=== PATIENT | female | born 2000 | race Caucasian/White ===

== ENCOUNTER 2021-03-22 09:38 | Emergency (ER) | payer BC, SELFPAY ==
--- NOTE | ~2021-03-22 | XR_ITS ---
EXAMINATION: XR chest 1V portable DATE: 03/22/2021 10:16 INDICATION: Cough. Shortness of breath. TECHNIQUE: A single frontal view of the chest was obtained. COMPARISON: None. FINDINGS: The chest demonstrates clear lungs without pneumonia, pleural effusion, or pneumothorax. Th e heart size is normal. IMPRESSION: 1. No acute cardiopulmonary disease. Reviewed, dictated and finalized at location A.
[2021-03-22 09:41] VITALS: BP 144/95; PULSE 96; RESP 18; TEMP 36.9; O2SAT 99
--- NOTE | 2021-03-22 09:52 | ECG_ITS ---
Measurements Intervals [place] Rate: 83 P: 41 DE: 122 QRS: 29 QRSD: 98 T: 16 QT: 342 QTc: 402 Interpretive Statements SINUS RHYTHM WITH SINUS ARRHYTHMIA BASELINE ARTIFACT- I, II, III, AVR, AVL, AVF, V1-V6 NORMAL ECG Electronically Signed On 03-22-2021 9:59:19 CDT by Adonay Bowles D.O.
[2021-03-22 09:54] VITALS: PULSE 94; O2SAT 99
[2021-03-22 10:13] LABS: Basophils Percent Auto 0.4 % (0.2-1.2); Eosinophils Percent Auto 0.4 % (0-4.4); Hematocrit 38.6 % (37.0-47.0); Immature Granulocyte Absolute 0.02 K/mm3 (0.00-0.031); Immature Granulocyte Percent A 0.4 % (0-0.5); Lymphocytes Absolute Auto 2.56 K/mm3 (0.9-3.2); Lymphocytes Percent Auto 48.8 % (18.3-44.2); Mean Corpuscular HGB Conc 33.7 g/dl (32-36); Mean Corpuscular Hemoglobin 29.3 pg (26-34); Mean Corpuscular Volume 86.9 fl (80-100); Mean Platelet Volume 9.1 fl (7.4-10.4); Monocytes Absolute Auto 0.5 K/mm3 (0.1-0.6); Monocytes Percent Auto 8.6 % (2.6-8.5); Neutrophils Absolute Auto 2.2 K/mm3 (1.3-6.7); Neutrophils Percent Auto 41.4 % (45.5-73.1); Platelet Count Result 278 k/mm3 (150-375); Red Blood Count 4.44 M/mm3 (4.2-5.4); White Blood Count 5.3 K/mm3 (4.5-10.0)
[2021-03-22 10:23] LABS: Anion Gap 9 mmol/L (8-16); Blood Urea Nitrogen 10 mg/dL (7-17); Calcium 9.5 mg/dL (8.4-10.2); Carbon Dioxide 23 mmol/L (22-30); Chloride 110 mmol/L (98-107); D Dimer 0.41 ug/mL (<0.48); Estimated CRCL calculation 127 ml/min; Estimated Glomerular Filt Rate > 60; Glucose 104 mg/dL (65-105); Potassium 3.7 mmol/L (3.4-5.0); Sodium 142 mmol/L (137-145)
[2021-03-22 10:46] VITALS: PULSE 79; RESP 19; O2SAT 99
--- NOTE | 2021-03-22 10:47 | ED.URI ---
HPI - URI/Sore Throat General Chief Complaint: Shortness of Breath/Dyspnea Stated Complaint: Difficulty Breathing Time Seen by Provider: 03/22/21 09:52 Source: patient Mode of arrival: ambulatory Limitations: no limitations History of Present Illness HPI Narrative: Patient is a 20 year old female who presents with fever, body aches, cough and shortness of breath x 1 week. Patient reports fever and bodyaches have resolved and shortness of breath and cough appeared x 2 days, reports increasing shortness of breath today. Patient has not been vaccinated for Covid as of this time. Patient denies significant medical history, reports she does vape. MD elicited complaint: cough and other (shortness of breath) Related Data Allergies Allergy/AdvReac Type Severity Reaction Status Date / Time amoxicillin [From Amoxil] Allergy Unknown Verified 03/22/21 09:55 Review of Systems Review of Systems: Narrative: CONSTITUTIONAL: Denies fever, chills, or sweats. EYES: Denies visual changes, redness, or discharge. ENT: Denies rhinorrhea, congestion, sore throat, or otalgia. CARDIOVASCULAR: Denies chest pain, palpitations, or edema. RESPIRATORY: Reports cough and dyspnea. GASTROINTESTINAL: Denies abdominal pain, nausea, vomiting, or diarrhea. GENITOURINARY: Denies dysuria or hematuria. SKIN: Denies rash or itching. MUSCULOSKELETAL: Denies back pain, joint pain, or myalgia. NEUROLOGIC: Denies headache, numbness, dizziness, or weakness. PSYCHIATRIC: Denies anxiety or depression. PMFSH Social History Social History (Updated 03/22/21 @ 10:51 by MALDONADO Nicholson) Smoking status: Current every day smoker Tobacco type: e-cigarettes/vaping Alcohol intake: never Substance use: never Living arrangements: with family Occupation/Education: occupation Comments At the time of signature, I have reviewed and agree with nursing past medical, surgical, social, and family history unless otherwise noted. Please see nursing chart for further information. There is no relevant family history pertinent to the presenting complaint. Exam Narrative: Exam Narrative: GENERAL: Well-appearing, well-nourished, and in no acute distress. HEAD: Normocephalic, atraumatic. EYES: EOMI. No redness or drainage. Conjunctiva are normal. ENT: Mucous membranes pink and moist. CHEST: No respiratory distress. Clear to auscultation. HEART: Regular rate and rhythm. No murmur appreciated. EXTREMITIES: Normal range of motion. SKIN: Warm, dry, no rash. NEURO: No focal deficits. Alert and oriented x3. Gait steady. PSYCH: Normal affect. No signs of depression or anxiety. Course Vital Signs Vital signs: Vital Signs Temperature 36.9 C 03/22/21 09:41 Pulse Rate 96 03/22/21 09:41 Respiratory Rate 18 03/22/21 09:41 Blood Pressure 144/95 H 03/22/21 09:41 Pulse Oximetry 99 03/22/21 09:41 Temperature 36.9 C 03/22/21 09:41 Pulse Rate 79 03/22/21 10:46 Respiratory Rate 19 03/22/21 10:46 Blood Pressure 144/95 H 03/22/21 09:41 Pulse Oximetry 99 03/22/21 10:46 Reviewed-patient is informed that they may have pre-hypertension or hypertension based on a blood pressure reading. I recommend the patient call the primary care provider listed on their discharge instructions or a physician of their choice this week to arrange follow-up for further evaluation of possible pre-hypertension or hypertension. MDM - URI/Sore Throat MDM Narrative Medical decision making narrative: Patient is afebrile and not nontoxic in appearance. Patient's labs are nonremarkable. Discussed the possibility of Covid with patient and mother. Patient to be tested for Covid at this time. Discussed quarantine until results are received. Discussed red flags with patient and mother about when to return to the ED. Patient and mother agree with plan of care. Patient is stable for discharge to home with outpatient follow up as needed. Differential Diagnosis Differential diagnosis: [place]
[2021-03-22 11:22] VITALS: BP 133/75; PULSE 88; RESP 18; O2SAT 99
[2021-03-23 18:54] LABS: SARS-CoV-2 RNA PCR Positive
== END 2021-03-22 11:23 | disposition home or self-care (01) ==
PROVIDERS: Emergency Medicine; Emergency Provider Nurse Practitioner
DX: U07.1 COVID-19 (principal); J06.9 Acute upper respiratory infection, unspecified; F17.290 Nicotine dependence, other tobacco product, uncomplicated; R03.0 Elevated blood-pressure reading, without diagnosis of hypertension
CPT/HCPCS: 36415; 71045; 80048; 85025; 85380; 93005; 99284; C9803; U0003; U0005

== ENCOUNTER 2022-04-19 09:54 | Outpatient (CLI) | payer BC, SELFPAY ==
[2022-04-19 10:38] LABS: Basophils Absolute Auto 0.1 K/mm3 (0.0-0.1); Basophils Percent Auto 0.5 % (0.2-1.2); Eosinophils Absolute Auto 0.2 K/mm3 (0-0.3); Eosinophils Percent Auto 1.6 % (0-4.4); Hematocrit 38.7 % (37.0-47.0); Hemoglobin 12.4 g/dL (12.0-15.0); Immature Granulocyte Absolute 0.08 K/mm3 (0.00-0.031); Immature Granulocyte Percent A 0.8 % (0-0.5); Lymphocytes Absolute Auto 2.57 K/mm3 (0.9-3.2); Lymphocytes Percent Auto 26.7 % (18.3-44.2); Mean Corpuscular Hemoglobin 29.4 pg (26-34); Mean Corpuscular Volume 91.7 fl (80-100); Mean Platelet Volume 9.1 fl (7.4-10.4); Monocytes Absolute Auto 0.9 K/mm3 (0.1-0.6); Monocytes Percent Auto 9.2 % (2.6-8.5); Neutrophils Absolute Auto 5.9 K/mm3 (1.3-6.7); Neutrophils Percent Auto 61.2 % (45.5-73.1); Platelet Count Result 392 k/mm3 (150-375); Red Blood Count 4.22 M/mm3 (4.2-5.4); White Blood Count 9.6 K/mm3 (4.5-10.0)
[2022-04-19 10:55] LABS: Cholesterol 197 mg/dL (0-200); HDL Direct 41 mg/dL; Hemoglobin A1C 5.2 % (<5.7); Triglycerides 88 mg/dL (<150)
[2022-04-19 11:08] LABS: LDL Cholesterol Direct 116 mg/dL
[2022-04-19 11:14] LABS: Beta HCG Quantitative < 2.39 mIU/ML
[2022-04-22 11:24] LABS: FSH 7.7 mIU/mL (***); Progesterone 0.2 ng/mL (***); Prolactin 8.9 ng/mL (***)
[2022-04-22 13:32] LABS: DHEA-Sulfate 122 mcg/dL (18-391)
[2022-04-28 03:56] LABS: Estradiol, Ultrasensitive 51 pg/mL
== END 2022-04-19 09:55 | disposition home or self-care (01) ==
LOC: ANHLAB 09:56
PROVIDERS: Visit Provider Obstetrics & Gynecology
DX: N92.6 Irregular menstruation, unspecified (principal); E66.9 Obesity, unspecified
CPT/HCPCS: 36415; 80061; 82627; 82670; 83001; 83036; 83498; 84144; 84146; 84402; 84403; 84702; 85025

== ENCOUNTER 2023-08-29 09:18 | Outpatient (CLI) | payer BC, SELFPAY ==
[2023-08-29 10:50] LABS: Basophils Percent Auto 0.4 % (0.2-1.2); Eosinophils Percent Auto 0.4 % (0-4.4); Hematocrit 39.1 % (37.0-47.0); Hemoglobin 12.9 g/dL (12.0-15.0); Immature Granulocyte Absolute 0.05 K/mm3 (0.00-0.031); Immature Granulocyte Percent A 0.5 % (0-0.5); Lymphocytes Absolute Auto 2.46 K/mm3 (0.9-3.2); Lymphocytes Percent Auto 25.2 % (18.3-44.2); Mean Corpuscular Hemoglobin 29.9 pg (26-34); Mean Corpuscular Volume 90.5 fl (80-100); Mean Platelet Volume 8.9 fl (7.4-10.4); Monocytes Absolute Auto 0.6 K/mm3 (0.1-0.6); Monocytes Percent Auto 6.2 % (2.6-8.5); Neutrophils Absolute Auto 6.6 K/mm3 (1.3-6.7); Neutrophils Percent Auto 67.3 % (45.5-73.1); Platelet Count Result 350 k/mm3 (150-375); Red Blood Count 4.32 M/mm3 (4.2-5.4); Red Cell Distribution Width 12.8 % (11.5-14.5); White Blood Count 9.8 K/mm3 (4.5-10.0)
[2023-08-29 11:01] LABS: Glucose 1 Hour PP 50gm Dose 106 mg/dL
[2023-08-29 11:42] LABS: HIV 1/2 Ab P24 Ag Result Negative (Negative)
[2023-08-29 12:22] LABS: Rubella IgG Antibody > 110.0 IU/ML
[2023-08-29 12:23] LABS: Hepatitis B Surface Antigen Negative (Negative)
[2023-08-29 14:41] LABS: Rapid Plasma Reagin Non-Reactive (NonReactive)
[2023-08-31 10:17] LABS: CMV IgG Antibody <0.60 U/mL (<0.60)
== END 2023-08-29 09:19 | disposition home or self-care (01) ==
LOC: ANHLAB 09:19
PROVIDERS: Visit Provider Student in an Organized Health Care Education/Training Program
DX: N91.2 Amenorrhea, unspecified (principal)
CPT/HCPCS: 36415; 82947; 84702; 85025; 86592; 86644; 86703; 86747; 86762; 86787; 86850; 86900; 86901; 87086; 87088; 87340; G0432

== ENCOUNTER 2023-11-21 09:42 | Outpatient (CLI) | payer OTHER, SELFPAY ==
--- NOTE | ~2023-11-21 | US_ITS ---
EXAMINATION: US OB /maternal detail DATE: 11/21/2023 10:56 INDICATION: Encounter for supervision of normal . TECHNIQUE: Real-time ultrasound of the pelvis was performed. COMPARISON: Ultrasound 09/05/2023 FINDINGS: There is a single living fetus in breech presentation. The placenta is anterior and fundal. he art rate is 131 beats per minute (bpm). The amniotic fluid volume is subjectively normal. The cervica l length is 4.8 cm on transabdominal images, which is normal. The following biometric data were obtained: Biparietal diameter (BPD): 4.6 cm; head circumference (HC): 17.9 cm; abdominal circumference (AC): 16 .9 cm; femur length (FL): 3.2 cm. These measurements are discordant with low HC/AC ratio. Estimated weight is 389 g +/- 58 g, which correlates with the 82nd percentile when 04/07/24 is u sed as estimated date of delivery. As single measurements, these parameters are each equal to the following estimated gestational ages: BPD: 20 weeks 0 days. HC: 20 weeks 2 days. AC: 21 weeks 6 days. FL: 20 weeks 0 days. estimated gestational age based solely on measurements from this exam is 20 weeks 4 days +/- 1 weeks 3 days. The cerebral ventricles and visualized portions of the spine are normal. The posterior head is not well evaluated. The heart is now well evaluated The diaphragm, stomach, kidneys, and bladder are normal. There are two umbilical arteries to yield a 3-vessel cord. The cord insertion is normal. IMPRESSION: 1. Single living fetus in breech presentation. 2. Estimated weight is 389 g +/- 58 g, which correlates with the 82nd percentile when 04/07/24 is used as estimated date of delivery. 3. head and heart not well evaluated. Otherwise normal anatomic survey. 4. Discordant biometrics with low HC/AC ratio. Reviewed, dictated and finalized at location E. [place] IMPRESSION: 1. Single living fetus in breech presentation. 2. Estimated weight is 389 g +/- 58 g, which correlates with the 82nd rcentile when 04/07/24 is used as estimated date of delivery. 3. head and heart not well evaluated. Otherwise normal anatomic socorro vey. 4. Discordant biometrics with low HC/AC ratio.
== END 2023-11-21 09:43 | disposition home or self-care (01) ==
LOC: ANHIMG 09:44
PROVIDERS: Visit Provider Obstetrics & Gynecology
DX: Z34.90 Encounter for supervision of normal pregnancy, unspecified, unspecified trimester (principal)
CPT/HCPCS: 76805

== ENCOUNTER 2024-01-18 10:48 | Outpatient (RCR) | payer OTHER, SELFPAY ==
[2024-01-16 12:09] LABS: Basophils Percent Auto 0.2 % (0.2-1.2); Eosinophils Absolute Auto 0.1 K/mm3 (0-0.3); Eosinophils Percent Auto 0.5 % (0-4.4); Hematocrit 33.7 % (37.0-47.0); Hemoglobin 11.2 g/dL (12.0-15.0); Immature Granulocyte Absolute 0.16 K/mm3 (0.00-0.031); Immature Granulocyte Percent A 1.3 % (0-0.5); Lymphocytes Absolute Auto 2.07 K/mm3 (0.9-3.2); Lymphocytes Percent Auto 16.9 % (18.3-44.2); Mean Corpuscular HGB Conc 33.2 g/dl (32-36); Mean Corpuscular Hemoglobin 30.4 pg (26-34); Mean Corpuscular Volume 91.6 fl (80-100); Mean Platelet Volume 9.2 fl (7.4-10.4); Monocytes Absolute Auto 0.7 K/mm3 (0.1-0.6); Monocytes Percent Auto 5.9 % (2.6-8.5); Neutrophils Absolute Auto 9.2 K/mm3 (1.3-6.7); Neutrophils Percent Auto 75.2 % (45.5-73.1); Platelet Count Result 346 k/mm3 (150-375); Red Blood Count 3.68 M/mm3 (4.2-5.4); Red Cell Distribution Width 13.9 % (11.5-14.5); White Blood Count 12.2 K/mm3 (4.5-10.0)
[2024-01-16 12:31] LABS: Glucose 1 Hour PP 50gm Dose 148 mg/dL
[2024-01-16 12:59] LABS: HIV 1/2 Ab P24 Ag Result Negative (Negative)
[2024-01-18] MEDS: RHO(D) IMMUNE GLOBULIN 300 MCG/2 ML SYRINGE IM (17:29)
== END 2024-01-18 11:00 | disposition home or self-care (01) ==
LOC: ANHLAB 10:48
PROVIDERS: Visit Provider Obstetrics & Gynecology
DX: Z11.4 Encounter for screening for human immunodeficiency virus [HIV] (principal); Z29.13 Encounter for prophylactic Rho(D) immune globulin; O36.0190 Maternal care for anti-D [Rh] antibodies, unspecified trimester, not applicable or unspecified; Z3A.00 Weeks of gestation of pregnancy not specified
CPT/HCPCS: 36415; 82947; 85025; 85461; 86703; 86850; 86900; 86901; 90384; 96372; G0432; J2790

== ENCOUNTER 2024-01-22 06:52 | Outpatient (CLI) | payer OTHER, SELFPAY ==
[2024-01-22 07:23] LABS: Glucose Fasting Gestational 97 mg/dL (>/=95)
[2024-01-22 08:41] LABS: Glucose 1 Hour Gest 185 mg/dL (>/=180)
[2024-01-22 09:56] LABS: Glucose 2 Hour Gest 141 mg/dL (>/= 155)
[2024-01-22 10:51] LABS: Glucose 3 Hour Gest 117 mg/dL (>/=140)
== END 2024-01-22 06:53 | disposition home or self-care (01) ==
LOC: ANHLAB 06:54
PROVIDERS: Visit Provider Obstetrics & Gynecology
DX: R73.09 Other abnormal glucose (principal)
CPT/HCPCS: 36415; 82951; 82952

== ENCOUNTER 2024-02-07 09:30 | Outpatient (RCR) | payer OTHER, SELFPAY ==
[2024-02-07 10:21] VITALS: BMI 46.5
== END 2024-04-14 09:36 | disposition home or self-care (01) ==
LOC: ANHDMC 09:30
PROVIDERS: Visit Provider Obstetrics & Gynecology
DX: O24.419 Gestational diabetes mellitus in pregnancy, unspecified control (principal); Z71.89 Other specified counseling; Z71.3 Dietary counseling and surveillance; Z3A.00 Weeks of gestation of pregnancy not specified
CPT/HCPCS: 97802; G0108

== ENCOUNTER 2024-03-29 09:05 | Outpatient (RCR) | payer OTHER, SELFPAY ==
[2024-02-16 09:40] VITALS: BP 121/66; PULSE 108
[2024-02-20 15:31] VITALS: BP 128/78; PULSE 871
[2024-02-23 09:07] VITALS: BP 128/75; PULSE 86
[2024-02-27 10:32] VITALS: BP 125/67; PULSE 102
[2024-03-01 09:19] VITALS: BP 123/51; PULSE 91
[2024-03-05 12:39] VITALS: BP 132/74; PULSE 83
[2024-03-08 09:56] VITALS: BP 132/72; PULSE 101
[2024-03-12 10:28] VITALS: BP 122/72; PULSE 107
[2024-03-15 09:38] VITALS: BP 132/76; PULSE 96
[2024-03-19 10:41] LABS: Basophils Percent Auto 0.3 % (0.2-1.2); Eosinophils Percent Auto 0.3 % (0-4.4); Hematocrit 33.8 % (37.0-47.0); Hemoglobin 11.6 g/dL (12.0-15.0); Immature Granulocyte Absolute 0.06 K/mm3 (0.00-0.031); Immature Granulocyte Percent A 0.8 % (0-0.5); Lymphocytes Absolute Auto 1.91 K/mm3 (0.9-3.2); Lymphocytes Percent Auto 24.2 % (18.3-44.2); Mean Corpuscular HGB Conc 34.3 g/dl (32-36); Mean Corpuscular Volume 87.3 fl (80-100); Mean Platelet Volume 9.7 fl (7.4-10.4); Monocytes Absolute Auto 0.8 K/mm3 (0.1-0.6); Monocytes Percent Auto 10.5 % (2.6-8.5); Neutrophils Absolute Auto 5.1 K/mm3 (1.3-6.7); Neutrophils Percent Auto 63.9 % (45.5-73.1); Platelet Count Result 330 k/mm3 (150-375); Red Blood Count 3.87 M/mm3 (4.2-5.4); Red Cell Distribution Width 14.9 % (11.5-14.5); White Blood Count 7.9 K/mm3 (4.5-10.0)
[2024-03-19 11:01] LABS: Appearance Urine Clear (Clear); Bacteria Urine Rare /hpf; Bilirubin Urine Negative (Negative); Blood Urine Negative (Negative); Color Urine Yellow (Yellow); Glucose Urine UA Negative (Negative); Ketones Urine Negative (Negative); Leukocyte Esterase Ur 3+ LEU/UL (Negative); Nitrate Urine Negative (Negative); Non Pathogenic Casts 0-2; Protein Urine Negative (Negative); RBC Urine 0-2 /hpf (0-2); Specific Grav Ur 1.004 (1.001-1.035); Squamous Epithelial Cell Urine Occasional /hpf (Few); Urobilinogen Urine 0.2 mg/dL (<2.0); WBC Urine 21-50 /hpf (0-3); pH Urine 7.5 (5.0-9.0)
[2024-03-19 11:02] LABS: Alanine Aminotransferase 18 U/L (6-35); Albumin Level 3.6 g/dL (3.5-5.1); Alkaline Phosphatase 107 U/L (38-126); Anion Gap 8 mmol/L (4-12); Aspartate Amino Transferase 21 U/L (14-36); Bilirubin,Total 0.4 mg/dL (0.2-1.3); Blood Urea Nitrogen 5 mg/dL (7-17); Calcium 9.4 mg/dL (8.4-10.2); Carbon Dioxide 19 mmol/L (22-30); Chloride 108 mmol/L (98-107); Estimated Glomerular Filt Rate > 60; Glucose 112 mg/dL (65-110); Potassium 3.7 mmol/L (3.4-5.0); Sodium 135 mmol/L (137-145); Uric Acid 4.1 mg/dL (2.5-7.5)
[2024-03-19 11:40] LABS: Creatinine Urine 17.9 mg/dL; Total Protein Urine Random 15 mg/dL; Ur Ttl Prot Creatinine Ratio 0.84 mg/mg (0-0.20)
[2024-03-19 12:01] LABS: Add Urine Microscopic? YES
[2024-03-19 12:10] VITALS: BP 125/83; PULSE 95
[2024-03-22 09:00] LABS: Basophils Percent Auto 0.2 % (0.2-1.2); Eosinophils Percent Auto 0.3 % (0-4.4); Hematocrit 33.9 % (37.0-47.0); Hemoglobin 11.4 g/dL (12.0-15.0); Immature Granulocyte Absolute 0.09 K/mm3 (0.00-0.031); Lymphocytes Absolute Auto 2.13 K/mm3 (0.9-3.2); Lymphocytes Percent Auto 22.9 % (18.3-44.2); Mean Corpuscular HGB Conc 33.6 g/dl (32-36); Mean Corpuscular Hemoglobin 30.1 pg (26-34); Mean Corpuscular Volume 89.4 fl (80-100); Mean Platelet Volume 9.8 fl (7.4-10.4); Monocytes Absolute Auto 0.8 K/mm3 (0.1-0.6); Monocytes Percent Auto 8.9 % (2.6-8.5); Neutrophils Absolute Auto 6.2 K/mm3 (1.3-6.7); Neutrophils Percent Auto 66.7 % (45.5-73.1); Platelet Count Result 331 k/mm3 (150-375); Red Blood Count 3.79 M/mm3 (4.2-5.4); Red Cell Distribution Width 14.9 % (11.5-14.5); White Blood Count 9.3 K/mm3 (4.5-10.0)
[2024-03-22 09:15] LABS: Alanine Aminotransferase 15 U/L (6-35); Albumin Level 3.7 g/dL (3.5-5.1); Alkaline Phosphatase 108 U/L (38-126); Anion Gap 6 mmol/L (4-12); Aspartate Amino Transferase 16 U/L (14-36); Bilirubin,Total 0.4 mg/dL (0.2-1.3); Blood Urea Nitrogen 7 mg/dL (7-17); Calcium 9.4 mg/dL (8.4-10.2); Carbon Dioxide 23 mmol/L (22-30); Chloride 107 mmol/L (98-107); Estimated Glomerular Filt Rate > 60; Glucose 89 mg/dL (65-110); Potassium 4.1 mmol/L (3.4-5.0); Sodium 136 mmol/L (137-145); Uric Acid 4.3 mg/dL (2.5-7.5)
[2024-03-22 09:22] LABS: Appearance Urine Cloudy (Clear); Bacteria Urine 4+ /hpf; Bilirubin Urine Negative (Negative); Blood Urine Negative (Negative); Color Urine Yellow (Yellow); Glucose Urine UA Negative (Negative); Ketones Urine Negative (Negative); Leukocyte Esterase Ur 3+ LEU/UL (Negative); Need Manual Microscopic Reviewed; Nitrate Urine Negative (Negative); Non Pathogenic Casts 0-2; Protein Urine Negative (Negative); RBC Urine 0-2 /hpf (0-2); Specific Grav Ur 1.013 (1.001-1.035); Squamous Epithelial Cell Urine Many /hpf (Few); Urobilinogen Urine 0.2 mg/dL (<2.0); WBC Urine 21-50 /hpf (0-3); pH Urine 6.5 (5.0-9.0)
[2024-03-22 09:29] LABS: Add Urine Microscopic? YES
[2024-03-22 09:33] LABS: Creatinine Urine 57.1 mg/dL; Total Protein Urine Random 13 mg/dL; Ur Ttl Prot Creatinine Ratio 0.23 mg/mg (0-0.20)
[2024-03-22 10:05] VITALS: BP 127/75; PULSE 88
--- NOTE | ~2024-03-29 | US_ITS ---
US OB BPP wo non-stress DATE: 02/16/2024 09:31 INDICATION: Gestational diabetes TECHNIQUE: Real-time imaging and Doppler analysis COMPARISON: 11/21/2023 obstetrical ultrasound examination FINDINGS: Live cannon intrauterine gestation with fetus in longitudinal lie, breech presentation w ith heart rate 133 bpm. Antral fundal placenta. Subjectively normal amount of amniotic fluid. Deepest amniotic fluid pocket measures 5.3 cm. Amniotic fluid index measures 15.2 cm, within normal range. (5th percentile MARTY: 8.6 cm; 95th percentile MARTY: 24.2 cm). BIOPHYSICAL PROFILE reported by marine services technician: breathin out of 2 movement: 2 out of 2 tone: 2 out of 2 Amniotic fluid pocket: 2 out of 2 Total score: 8 out of 8 IMPRESSION: Normal biophysical profile score of 8 out of 8 Breech presentation Reviewed, dictated and finalized at Location A. Reviewed, dictated and finalized at location A.
--- NOTE | ~2024-03-29 | US_ITS ---
EXAMINATION: US OB BPP wo non-stress DATE: 02/27/2024 10:25 INDICATION: Maternal gestational diabetes during third trimester of TECHNIQUE: Real-time pelvic ultrasound was performed. The interpreting radiologist was not present fo r the study. COMPARISON: None. FINDINGS: There is a single living fetus in vertex presentation. The placenta is anterior. heart rate is 128 beats per minute (bpm). Amniotic fluid volume is subjectively normal normal deepest vertical poc ket measuring 4.4 cm. Biophysical profile performed by the technologist: breathing (30 sec sustained breathing in 30 minutes): 2 out of 2 movement (3 gross body movements in 30 minutes): 2 out of 2 tone (one episode of udbqvta-zlmrebylk-zxffvli limb movement): 2 out of 2 Amniotic fluid pocket (2 cm): 2 out of 2 Total score: 8 out of 8 IMPRESSION: 1. Single living fetus in vertex presentation with heart rate of 128 bpm. 2. Biophysical profile 8 out of 8. Reviewed, dictated and finalized at location A.
--- NOTE | ~2024-03-29 | US_ITS ---
EXAMINATION: US OB BPP wo non-stress DATE: 03/19/2024 11:43 INDICATION: Gestational diabetes during third trimester TECHNIQUE: Real-time pelvic ultrasound was performed. The interpreting radiologist was not present fo r the study. COMPARISON: None. FINDINGS: There is a single living fetus in vertex presentation. The placenta is anterior. heart rate is 127 beats per minute (bpm). Amniotic fluid volume appears subjectively normal with normal deepest ve rtical pocket measuring 4.3 cm. Biophysical profile performed by the technologist: breathing (30 sec sustained breathing in 30 minutes): 2 out of 2 movement (3 gross body movements in 30 minutes): 2 out of 2 tone (one episode of cewwhcg-ogscntwaf-yswajmb limb movement): 2 out of 2 Amniotic fluid pocket (2 cm): 2 out of 2 Total score: 8 out of 8 IMPRESSION: 1. Single living fetus in vertex presentation with heart rate of 127 bpm. 2. Biophysical profile 8 out of 8. Reviewed, dictated and finalized at location B.
--- NOTE | ~2024-03-29 | US_ITS ---
EXAMINATION: US OB BPP wo non-stress DATE: 02/20/2024 15:22 INDICATION: Gestational diabetes. Third trimester. TECHNIQUE: Real-time pelvic ultrasound was performed. COMPARISON: Ultrasound 02/16/2024 FINDINGS: There is a single living fetus in breech presentation. The placenta is anterior. heart rate is 135 beats per minute (bpm). Biophysical profile performed by the technologist: breathing (30 sec sustained breathing in 30 minutes): 2 out of 2 movement (3 gross body movements in 30 minutes): 2 out of 2 tone (one episode of jjxvtsb-qosplztbq-fjwbglx limb movement): 2 out of 2 Amniotic fluid pocket (2 cm): 2 out of 2 Total score: 8 out of 8 IMPRESSION: 1. Single living fetus in breech presentation. 2. Biophysical profile 8 out of 8. Reviewed, dictated and finalized at location A.
--- NOTE | ~2024-03-29 | US_ITS ---
EXAMINATION: US OB BPP wo non-stress DATE: 03/05/2024 12:25 INDICATION: Gestational diabetes. Third trimester. TECHNIQUE: Real-time pelvic ultrasound was performed. COMPARISON: Ultrasound 02/27/2024 FINDINGS: There is a single living fetus in vertex presentation. The placenta is anterior. heart rate is 151 beats per minute (bpm). The deepest vertical pocket is 5.8 cm, which is normal. Biophysical profile performed by the technologist: breathing (30 sec sustained breathing in 30 minutes): 2 out of 2 movement (3 gross body movements in 30 minutes): 2 out of 2 tone (one episode of avhhhbl-hyxfslqwp-wyubvmd limb movement): 2 out of 2 Amniotic fluid pocket (2 cm): 2 out of 2 Total score: 8 out of 8 IMPRESSION: 1. Single living fetus in vertex presentation. 2. Biophysical profile 8 out of 8. Reviewed, dictated and finalized at location A.
--- NOTE | ~2024-03-29 | US_ITS ---
EXAMINATION: US OB BPP wo non-stress DATE: 03/12/2024 11:04 INDICATION: Gestational diabetes. Third trimester. TECHNIQUE: Real-time pelvic ultrasound was performed. COMPARISON: Ultrasound 03/05/2024 FINDINGS: There is a single living fetus in vertex presentation. The placenta is anterior. The cervical length is 2.9 cm on transabdominal images, which is normal. heart rate is 154 beats per minute (bpm). Biophysical profile performed by the technologist: breathing (30 sec sustained breathing in 30 minutes): 2 out of 2 movement (3 gross body movements in 30 minutes): 2 out of 2 tone (one episode of knwtbgx-nnuhxngae-enfrtmm limb movement): 2 out of 2 Amniotic fluid pocket (2 cm): 2 out of 2 Total score: 8 out of 8 IMPRESSION: 1. Single living fetus in vertex presentation. 2. Biophysical profile 8 out of 8. Reviewed, dictated and finalized at location A.
--- NOTE | ~2024-03-29 | US_ITS ---
EXAMINATION: US OB BPP wo non-stress DATE: 03/22/2024 10:16 INDICATION: tachycardia. Third trimester. TECHNIQUE: Real-time pelvic ultrasound was performed. COMPARISON: Ultrasound 03/19/2024 FINDINGS: There is a single living fetus in vertex presentation. The placenta is anterior. heart rate is 134 beats per minute (bpm). Biophysical profile performed by the technologist: breathing (30 sec sustained breathing in 30 minutes): 2 out of 2 movement (3 gross body movements in 30 minutes): 2 out of 2 tone (one episode of fkpkrrs-xtiawkhwb-dmaijvl limb movement): 2 out of 2 Amniotic fluid pocket (2 cm): 2 out of 2 Total score: 8 out of 8 IMPRESSION: 1. Single living fetus in vertex presentation. 2. Biophysical profile 8 out of 8. Reviewed, dictated and finalized at location A.
[2024-03-29 09:44] VITALS: BP 117/70; PULSE 81
== END 2024-05-07 08:22 | disposition home or self-care (01) ==
LOC: ANHOBOP 09:05
PROVIDERS: Visit Provider Student in an Organized Health Care Education/Training Program
DX: O24.419 Gestational diabetes mellitus in pregnancy, unspecified control (principal); Z3A.32 32 weeks gestation of pregnancy; Z3A.33 33 weeks gestation of pregnancy; Z3A.34 34 weeks gestation of pregnancy; Z3A.35 35 weeks gestation of pregnancy; Z3A.36 36 weeks gestation of pregnancy; Z3A.37 37 weeks gestation of pregnancy; Z3A.38 38 weeks gestation of pregnancy
CPT/HCPCS: 36415; 59025; 76819; 80053; 81001; 82570; 84156; 84550; 85025; 87086; 87088

== ENCOUNTER 2024-04-02 06:42 | Inpatient (IN) | payer OTHER, SELFPAY ==
[2024-04-02] VITALS (161 sets, daily range): BP systolic 84–163; BP diastolic 49–98; PULSE 71–131; TEMP 36.4–37.6; O2SAT 94–100; BMI 47.2
--- NOTE | 2024-04-02 06:42 | LDADM ---
This patient, Carmen Mi, was admitted to Labor/Delivery/Recovery 108 on 04/02/24 at 06:42. Plans for labor, pain management and were discussed with patient. Patient/family oriented to hospital policies and general routines including ID bracelet, bed and alarms, visiting hours, pain management, procedures, bathroom and other care routines, personal items, smoking policy, room service/diet and guest tray routines, security routines, and visiting hours. Patient/Family are encouraged to report perceived risks to care and to ask questions if they do not understand what they are told or what they should do. See OBIX for further documentation.
[2024-04-02 07:24] LABS: Basophils Percent Auto 0.3 % (0.2-1.2); Eosinophils Percent Auto 0.3 % (0-4.4); Hematocrit 35.7 % (37.0-47.0); Hemoglobin 11.7 g/dL (12.0-15.0); Immature Granulocyte Absolute 0.07 K/mm3 (0.00-0.031); Immature Granulocyte Percent A 0.6 % (0-0.5); Lymphocytes Absolute Auto 2.78 K/mm3 (0.9-3.2); Mean Corpuscular HGB Conc 32.8 g/dl (32-36); Mean Corpuscular Hemoglobin 29.3 pg (26-34); Mean Corpuscular Volume 89.5 fl (80-100); Mean Platelet Volume 10.3 fl (7.4-10.4); Monocytes Absolute Auto 1.1 K/mm3 (0.1-0.6); Monocytes Percent Auto 9.4 % (2.6-8.5); Neutrophils Absolute Auto 7.6 K/mm3 (1.3-6.7); Neutrophils Percent Auto 65.4 % (45.5-73.1); Platelet Count Result 357 k/mm3 (150-375); Red Blood Count 3.99 M/mm3 (4.2-5.4); Red Cell Distribution Width 15.1 % (11.5-14.5); White Blood Count 11.6 K/mm3 (4.5-10.0)
[2024-04-02] MEDS: miSOPROStol 25 MCG TABLET 50 MCG BUCCAL ×2 (07:38→11:17)
[2024-04-02 07:42] LABS: Glucose Point of Care 97 mg/dl (65-105)
[2024-04-02 08:17] LABS: HIV 1/2 Ab P24 Ag Result Negative (Negative)
[2024-04-02 12:06] LABS: Glucose Point of Care 123 mg/dl (65-105)
--- NOTE | 2024-04-02 13:09 | WPDHPUPDATE1 ---
History and Physical Update Update Date/Time: 04/02/24 13:09 23 yo who present for IOL for GDM at 39w2d History and Physical has been reviewed, including an updated exam of the patient. There are NO changes in the patient's condition. Risks, benefits, and alternatives have been discussed and questions answered. Patient agrees to proceed with procedure. admit to L&D routine admission orders Rh -, will need rhogam PP GBS neg diet controlled GDM. Will monitor BS in labor plan for misoprostol IOL continuous EFM
--- NOTE | 2024-04-02 13:10 | PM.OBPNLAB ---
Pain Control Date/time seen: 04/02/24 13:10 Pain control: tolerating well Pelvic Exam Dilation (cm): 1 Effacement (%): 50 station: -3 Amniotic membrane status: Intact Contractions Monitor mode: External Contraction pattern: Irregular Contraction intensity: Mild Status status: Category l Assessment and Plan Assessment: induction ongoing Comments: pt s/p 1 round of buccal misoprostol. will administer another dose of misoprostol. Cervical cook's catheter placed with 40 mL of saline in each vaginal and uterine balloon.
[2024-04-02 13:15] LABS: Rapid Plasma Reagin Non-Reactive (NonReactive)
[2024-04-02] MEDS: LACTATED RINGERS 1,000 ML 125 ML IV CONT ×2 (16:16→17:13)
[2024-04-02] MEDS: OXYTOCIN 30 UNITS/NS 500 ML 30 UNITS/500 ML BAG IV CONT (16:16)
[2024-04-02 16:28] LABS: Glucose Point of Care 75 mg/dl (65-105)
--- NOTE | 2024-04-02 16:53 | WPDANESEPPF ---
Anes - Initial Pre Proc Eval Procedure: labor epidural Date/Time: 04/02/24 16:53 Surgeon: Mykel Cannon MD Pre Op Diagnosis: labor pain Pre Op Diagnosis: Induction of Labor Patient Data Age: 23 Gender: F Height: 1.5 m Weight: 106 kg Last Vital Signs Temp 37.6 C H 04/02/24 14:30 Pulse 111 H 04/02/24 16:46 BP 125/70 04/02/24 16:46 O2 Del Method Room Air 04/02/24 07:30 Allergies Allergy/AdvReac Type Severity Reaction Status Date / Time amoxicillin [From Amoxil] Allergy Mild Hives Verified 03/26/24 09:14 Home Medications Medication Instructions Recorded Confirmed Type vits no.126-ferrous fum 1 tablet PO DAILY 08/29/23 03/26/24 History 28 mg iron-folic acid 800 mcg tablet (Classic ) Laboratory Tests 04/02/24 04/02/24 04/02/24 06:57 06:58 07:37 WBC 11.6 H K/mm3 (4.5-10.0) RBC 3.99 L M/mm3 (4.2-5.4) Hgb 11.7 L g/dL (12.0-15.0) Hct 35.7 L % (37.0-47.0) MCV 89.5 fl (80-100) MCH 29.3 pg (26-34) MCHC 32.8 g/dl (32-36) RDW 15.1 H % (11.5-14.5) Plt Count 357 k/mm3 (150-375) MPV 10.3 fl (7.4-10.4) Immature Gran % (Auto) 0.6 H % (0-0.5) Neut % (Auto) 65.4 % (45.5-73.1) Lymph % (Auto) 24.0 % (18.3-44.2) Floyd % (Auto) 9.4 H % (2.6-8.5) Eos % (Auto) 0.3 % (0-4.4) Baso % (Auto) 0.3 % (0.2-1.2) Lymph # (Auto) 2.78 K/mm3 (0.9-3.2) Floyd # (Auto) 1.1 H K/mm3 (0.1-0.6) Eos # (Auto) 0.0 K/mm3 (0-0.3) Baso # (Auto) 0.0 K/mm3 (0.0-0.1) Abs Immat Gran (auto) 0.07 H K/mm3 (0.00-0.031) Absolute Neuts (auto) 7.6 H K/mm3 (1.3-6.7) Absolute Nucleated RBC 0.000 K/mm3 (0.0-0.012) Nucleated RBC % 0.0 % (0.0-0.2) POC Capillary Glucose 97 mg/dl (65-105) RPR Non-reactive (NonReactive) HIV 1&2 Ab/P24 Ag 4thGn Negative (Negative) Blood Type O Negative Antibody Screen Negative 04/02/24 04/02/24 12:02 16:25 WBC RBC Hgb Hct MCV MCH MCHC RDW Plt Count MPV Immature Gran % (Auto) Neut % (Auto) Lymph % (Auto) Floyd % (Auto) Eos % (Auto) Baso % (Auto) Lymph # (Auto) Floyd # (Auto) Eos # (Auto) Baso # (Auto) Abs Immat Gran (auto) Absolute Neuts (auto) Absolute Nucleated RBC Nucleated RBC % POC Capillary Glucose 123 H mg/dl 75 mg/dl (65-105) (65-105) RPR HIV 1&2 Ab/P24 Ag 4thGn Blood Type Antibody Screen Patient hx anesthesia problems: none Family hx anesthesia problems: none Results Review: All pre-operative results and documents have been reviewed as part of the pre-operative evaluation. [facility] Family History Family History Grandparent Heart disease Breast cancer Acute leukemia Social History Social History Smoking packs per day: 0.25 Smoking cigarettes per day: 5.0 Years smoked: 2 Smoking pack-years: 0.50 Smoking status: Former smoker Alcohol intake: never Substance use: never Substance use type: does not use Do You Feel Safe in your Home?: Yes Lack of Transportation: No Lack of Food: Never True Current Housing: I Have Housing Concerned About Future Housing: No Difficulty Paying Gas/Electric Bills: No Difficulty Paying for Meds: No Currently Unemployed: No Education: High School Diploma/GED Difficulty w/ Childcare or Family Care: No Living arrangements: with family Occupation/Education: occupation Gender identity (if
[2024-04-02 19:10] LABS: Glucose Point of Care 74 mg/dl (65-105)
[2024-04-02 20:59] LABS: Glucose Point of Care 82 mg/dl (65-105)
[2024-04-02 23:10] LABS: Glucose Point of Care 71 mg/dl (65-105)
[2024-04-03] VITALS (223 sets, daily range): BP systolic 104–156; BP diastolic 41–112; PULSE 86–191; RESP 18; TEMP 36.6–38.8; O2SAT 78–100
[2024-04-03] MEDS: LACTATED RINGERS 1,000 ML 125 ML IV CONT ×2 (03:16→07:37)
[2024-04-03] MEDS: ONDANSETRON INJ 4 MG/2 ML VIAL IV PUSH (03:38)
[2024-04-03 03:43] LABS: Glucose Point of Care 67 mg/dl (65-105)
[2024-04-03 03:43] LABS: Glucose Point of Care 69 mg/dl (65-105)
[2024-04-03 03:43] LABS: Glucose Point of Care 79 mg/dl (65-105)
[2024-04-03 06:01] LABS: Glucose Point of Care 88 mg/dl (65-105)
[2024-04-03 08:11] LABS: Glucose Point of Care 76 mg/dl (65-105)
[2024-04-03 10:37] LABS: Glucose Point of Care 72 mg/dl (65-105)
[2024-04-03] MEDS: ACETAMINOPHEN 500 MG TABLET 1000 MG PO (11:35)
--- NOTE | 2024-04-03 12:08 | PM.OBPRVD ---
OB - Vaginal Delivery Note Procedure Delivery date: 04/03/24 Events: Gestational Diabetes Induction method: Per Misoprostol Protocol Delivery augmentation: Rupture of Membranes and Pitocin Delivery monitor: External FHT and Internal Uterine Route of delivery: Episiotomy description: None Laceration Description: Perineal - 2nd Degree and Labial (right) Delivery repair: vicryl Specimen: Yes (placenta) Quantitative Blood Loss (ml): 200 Anesthesia type: Epidural Disposition: Floor Complications: No immediate complications [place] Baby Date of : 04/03/24 Time of : 11:43 Weeks of gestation at delivery: 39 Infant gender: Female presentation: vertex position: Right Occiput Anterior Placenta delivery description: Spontaneous Cord Vessel Description: 3 Vessels
[2024-04-03] MEDS: OXYTOCIN 30 UNITS/NS 500 ML 30 UNITS/500 ML BAG 125 UNITS IV CONT (12:16)
[2024-04-03] MEDS: WITCH HAZEL 40 PADS 1 PAD TOPICAL (14:02)
[2024-04-03] MEDS: BENZOCAINE 20% AER SPR (*SP) 56 GM CAN 1 SPRAY TOPICAL (14:03)
[2024-04-04 05:00] VITALS: BP 124/88; PULSE 114; RESP 18; TEMP 36.7; O2SAT 100
[2024-04-04 05:20] LABS: Hematocrit 32.5 % (37.0-47.0); Hemoglobin 10.5 g/dL (12.0-15.0)
[2024-04-04 08:05] VITALS: BP 120/72; PULSE 100; RESP 16; TEMP 37.2; O2SAT 96
--- NOTE | 2024-04-04 08:09 | PM.OBPNVD ---
OB - PN: Subj Subjective Date/time seen: 04/04/24 08:09 Patient comments: no complaints, pain well controlled and tolerating diet [place] feeding status: exclusively breast feeding Narrative: patient doing well this AM. No complaints. Pain is well controlled. She reports minimal bleeding. She is ambulating and voiding without difficulty. She is tolerating PO. She denies N/V, fever, chills. OB - PN: Obj Data Labs 04/04/24 04:23 Labs: Laboratory Results - last 24 hr 04/03/24 04/03/24 04/04/24 08:08 10:34 04:23 Hgb 10.5 L Hct 32.5 L POC Capillary Glucose 76 72 Blood Type O Negative Antibody Screen Negative Screen Negative Baby's Blood Type O pos Baby's REMI Negative Doses of RhIg Required 1 OB - PN A/P Plan day: 1 Plan: routine care Comments: patient doing well H/H stable bleeding is light VSS continue routine care Time Spent With Patient Time: Total time spent is greater than 50% in coordination of care (as documented) at patient's floor/unit and/or counseling patient: Time with patient: less than 15 minutes Review of Systems Review of Systems: All systems reviewed & are unremarkable except as noted in HPI and below Exam Const: General: comfortable and no acute distress Resp: Effort & Inspection: normal respiratory effort Cardio: Rate: regular rate GI: GI Palp: Yes Soft to palpation and No Tenderness to palpation present (GI) Auscultation: normal bowel sounds Other: fundus firm and below umbilicus. Psych: Affect: normal affect
--- NOTE | 2024-04-04 08:10 | PM.OBDSVD ---
DS: Admitting Diagnosis Discharge Date 04/05/24 Admitting Diagnosis intrauterine at term gestational diabetes DS: Discharge Diagnosis Discharge Diagnosis (1) Normal vaginal delivery: Code(s): O80 - Encounter for full-term uncomplicated delivery Status: Acute OB - DS: Summary Hospital Course Hospital Course: She was admitted for induction of labor. She had an uncomplicated vaginal delivery. She did well . She was discharged to home on day 2. OB Procedures : None OB Procedures Intrapartum: Spontaneous Vag Delivery OB Procedures: : None and RHo (D) lg Peripartum Data Laceration Description: Perineal - 2nd Degree and Labial (right) Episiotomy description: None Status at Discharge Functional status at discharge: independent ambulation Overall status at discharge: patient is back to baseline Time Spent with Patient Time attestation: Total time spent providing and/or coordinating discharge services: Time spent: Less than 30 minutes Exam Const: General: comfortable and no acute distress Resp: Effort & Inspection: normal respiratory effort Auscultation: clear to auscultation bilaterally Cardio: Rate: regular rate GI: GI Palp: Yes Soft to palpation Auscultation: normal bowel sounds Other: Fundus firm below umbilicus Psych: Appearance: grossly normal Mental Status: mental status grossly normal Affect: normal affect DS: Data Data Completed and Pending Pending studies at discharge: Pending at discharge 04/03/24 14:31 Surgical [PTH] Routine Labs on day of discharge: Labs from last 24 hours 04/04/24 04/03/24 04/03/24 04:23 10:34 08:08 Hgb 10.5 L Hct 32.5 L POC Capillary Glucose 72 76 Blood Type O Negative Antibody Screen Negative Screen Negative Baby's Blood Type O pos Baby's REMI Negative Doses of RhIg Required 1 Discharge Plan Discharge Attending physician on discharge: Mykel Cannon Consulting providers: Gavin Camara; Carline Farris; Bony Harrison Discharging Clinician: Mykel Cannon Anticipated Discharge Date/Time: 04/05/24 11:03 Patient Disposition: Home, Self-Care Activity: as tolerated and pelvic rest Diet: regular Discharge Instructions: Education: Mom and Baby Guide Given to: Mother Follow-Up: Call your delivering provider's office for an appointment to be seen in: 4- 6 Weeks Mom and baby should come to the [facility] for the follow-up appointment. Appointment Date/Time: April 07, 2024 at 11:00 am What to expect at your follow-up visit: Blood Pressure Check Physical Assessment Call [phone] if you are unable to keep your appointment time. BREAST CARE: * Wear a snug supportive bra. * For engorgement discomfort: Breast Feeding: * Apply warm moist washcloths * Express milk as needed to relieve engorgement * Wear loose clothing Bottle Feeding: * May apply ice packs * For sore nipples: * Identify correct latch-on * Apply warm moist washcloths before and after nursing * Air dry nipples after nursing * May apply Lansinoh cream to nipples PERINEAL CARE: * Until bleeding stops, use your sergio bottle after urinating * Change your pad frequently throughout the day * You may take sitz baths several times a day (fill your bathtub with warm water and soak for 20 minutes.) Do NOT bathe in the water * No tub baths until seen by your physician - You may shower ACTIVITY: * Rest as much as possible. * Do not exercise or lift anything heavier than your baby (such as laundry or other children.) * Avoid stairs or driving as much as possible. * Do not put anything into the vagina. No douching, tampons, or sexual activity until seen by physician. NOTIFY PHYSICIAN IF YOU HAVE ANY QUESTIONS OR IF ANY OF THE FOLLOWING SYMPTOMS OCCUR: * If your vaginal bleedin
[2024-04-04] MEDS: DOCUSATE SODIUM 100 MG CAPSULE PO ×2 (08:37→16:07)
[2024-04-04] MEDS: MULTIVIT/MIN/PREN/FOL AC/IRON TABLET 1 TAB PO (08:37)
--- NOTE | 2024-04-04 12:15 | WPDANLDPN2 ---
Anes-Prog Note L&D Date/Time: 04/04/24 12:15 Neuro status: Neuro function grossly intact. Cardiovascular status: normal Respiratory status: normal Airway patency: baseline Mental status: baseline Post-Op hydration status: normal Vital Signs: Last Vital Signs Temp 37.2 C 04/04/24 08:05 Pulse 100 04/04/24 08:05 Resp 16 04/04/24 08:05 BP 120/72 04/04/24 08:05 Pulse Ox 96 04/04/24 08:05 O2 Del Method Room Air 04/04/24 08:37 Pain score (VAS): 0 I/O: Intake & Output 04/03/24 04/04/24 04/04/24 23:59 07:59 15:59 Intake Total 240 Balance 240 Post-procedural complaints: none Patient feedback: Patient satisfied with anesthetic care.
--- NOTE | 2024-04-04 13:55 | PC.NURSE ---
Introductions were made, then consulted with patient to assess needs related to . Mother led the conversation with her?plans to feed?her infant and the?experience so far. Encouraged understanding of milk production and building/maintaining a milk supply. Mother chooses to bottle feed at this time and has her own wearable pump. We discussed use and storage of pumped milk, finger feeding drops of colostrum, mixing a small amount of formula with drops of colostrum to facilitate feeding and calling out for assistance if she decides to put baby to breast. Father says infant has latched well when they did put her to breast. Mother voiced understanding of supply and demand milk production, pumping each time baby eats, and transition of colostrum to milk. Parents voiced understanding of information, demonstrated learning and will call if there is a request for assistance. Reported to the Primary RN.
[2024-04-04 20:00] VITALS: BP 133/86; PULSE 93; RESP 18; TEMP 36.7; O2SAT 100
[2024-04-04] MEDS: IBUPROFEN 600 MG TABLET PO (23:24)
[2024-04-05 07:30] VITALS: BP 125/78; PULSE 85; RESP 16; TEMP 36.6; O2SAT 98
--- NOTE | 2024-04-05 08:00 | PC.NURSE ---
Patient viewed the discharge video Mother & Baby Care, The First Two Weeks . Patient was given the opportunity and encouraged to ask questions. Patient verbalized understanding of information shared and has been given the mother/baby guide for home reference.
[2024-04-05] MEDS: DOCUSATE SODIUM 100 MG CAPSULE PO (08:42)
[2024-04-05] MEDS: MULTIVIT/MIN/PREN/FOL AC/IRON TABLET 1 TAB PO (08:43)
[2024-04-05] MEDS: TETANUS,DIPHTHERIA,AC PERTUSSIS ADULT (0.5 ML) BOOSTRIX IM (08:43)
[2024-04-05] MEDS: RHO(D) IMMUNE GLOBULIN 300 MCG/2 ML SYRINGE IM (08:44)
--- NOTE | 2024-04-05 11:01 | PM.OBPNVD ---
OB - PN: Subj Subjective Date/time seen: 04/05/24 11:01 Patient comments: pain well controlled, tolerating diet and other (Decreasing lochia.) baby status: doing well and nursing well OB - PN: Obj Data Labs 04/04/24 04:23 Labs: Laboratory Results - last 24 hr 04/04/24 04:23 Blood Type O Negative Antibody Screen Negative Screen Negative Baby's Blood Type O pos Baby's REMI Negative Doses of RhIg Required 1 OB - PN A/P Plan day: 2 Plan: discharge home and other Comments: Patient doing well. Follow up 4-6 weeks. Discharge instructions provided. Time Spent With Patient Time: Total time spent is greater than 50% in coordination of care (as documented) at patient's floor/unit and/or counseling patient: Time with patient: less than 15 minutes Exam Psych: Affect: normal affect Other: Abd: fundus firm below umbilicus, nontender Ext: nontender
[2024-04-07 14:31] VITALS: BP 135/82; PULSE 99; RESP 18; TEMP 36.9; O2SAT 100
== END 2024-04-05 12:11 | disposition home or self-care (01) | DRG 805 ==
LOC: ANHLDR 06:47 → ANHOB2 04-03 15:01
PROVIDERS: Admitting Provider Student in an Organized Health Care Education/Training Program; Visit Provider Student in an Organized Health Care Education/Training Program
DX: O24.420 Gestational diabetes mellitus in childbirth, diet controlled (principal); O41.1230 Chorioamnionitis, third trimester, not applicable or unspecified; Z37.0 Single live birth; Z3A.39 39 weeks gestation of pregnancy; O26.893 Other specified pregnancy related conditions, third trimester; Z67.91 Unspecified blood type, Rh negative; O70.1 Second degree perineal laceration during delivery
CPT/HCPCS: 36415; 82948; 85014; 85018; 85025; 85461; 86592; 86703; 86850; 86900; 86901; 88307; 90384; 90715; A9270; G0432; J2405; J2590; J2790; J2795; J7120

== ENCOUNTER 2025-01-10 07:30 | Emergency (ER) | payer OTHER, SELFPAY ==
--- OUTSIDE RECORDS SUMMARY | 2025-01-10 07:32 | XMS_ITS | Referral Summary ---
Author Organization [facility] Address [address] [place] [id number] Care Team Providers Care Class A Regional Truck Driver Name Role Phone No, Physician Primary Care Provider Allergies Active Allergy Reactions Criticality Noted Date Comments Amoxicillin Rash Medium 11/16/2021 Social History Tobacco Use Types Packs/Day Years Used Date Smoking Tobacco: Never Assessed Comments No Sex and Gender Information Value Date Recorded Sex Assigned at Not on file Legal Sex Female 3:40 AM [employer] Gender Identity Female 11/16/2021 9:26 AM [employer] Sexual Orientation Not on file Last Filed Vital Signs Vital Sign Reading Time Taken Comments Blood Pressure 126/81 11/16/2021 3:05 PM [employer] Pulse 80 11/16/2021 3:05 PM [employer] Temperature 36.1 C (97 F) 11/16/2021 8:10 AM [employer] Respiratory Rate 16 11/16/2021 10:47 AM [employer] Oxygen Saturation 98% 11/16/2021 3:05 PM [employer] Inhaled Oxygen Concentration - - Weight 91.6 kg (202 lb) 11/16/2021 8:10 AM [employer] Height 152.4 cm (5') 11/16/2021 8:10 AM [employer] Body Mass Index 39.45 11/16/2021 8:10 AM [employer] Plan of Treatment Not on file Insurance [facility] CHOICE OOS Care Teams Class A Regional Truck Driver Relationship Specialty Start Date End Date No, Physician PCP - General 11/16/21
--- OUTSIDE RECORDS SUMMARY | 2025-01-10 07:32 | XMS_ITS | Clinical Summary ---
Author Organization [facility] Address [address] [place] [id number] Care Team Providers Care Paragliding Instructor Name Role Phone No, Physician Primary Care Provider [phone] Allergies Active Allergy Reactions Criticality Noted Date Comments Amoxicillin Rash Medium 11/16/2021 Social History Tobacco Use Types Packs/Day Years Used Date Smoking Tobacco: Never Assessed Comments No Sex and Gender Information Value Date Recorded Sex Assigned at Not on file Legal Sex Female 3:40 AM [employer] Gender Identity Female 11/16/2021 9:26 AM [employer] Sexual Orientation Not on file Obstetrics History Last Filed Vital Signs Vital Sign Reading Time Taken Comments Blood Pressure 126/81 11/16/2021 3:05 PM [employer] Pulse 80 11/16/2021 3:05 PM [employer] Temperature 36.1 C (97 F) 11/16/2021 8:10 AM [employer] Respiratory Rate 16 11/16/2021 10:47 AM [employer] Oxygen Saturation 98% 11/16/2021 3:05 PM [employer] Inhaled Oxygen Concentration - - Weight 91.6 kg (202 lb) 11/16/2021 8:10 AM [employer] Height 152.4 cm (5') 11/16/2021 8:10 AM [employer] Body Mass Index 39.45 11/16/2021 8:10 AM [employer] Plan of Treatment Not on file Insurance [facility] CHO[facility] OOS Care Teams Paragliding Instructor Relationship Specialty Start Date End Date No, Physician PCP - General 11/16/21
--- OUTSIDE RECORDS SUMMARY | 2025-01-10 07:33 | XMS_ITS | Data Portability ---
Author Organization [facility] Address [address] [place] [address] Assessment Encounter Date Assessment Date Assessment LastModified by Organization Details LastModified Time 02/22/2023 02/22/2023 Annual gynecological exam performed. Patient will come back in a year unless there are new symptoms. [email or web address] Not available 02/22/2023 10:24:26 04/04/2023 04/04/2023 reviewed COST will check infertility benefits plan to check ovulation 1-2 mo regulate cycles with prometrium reviewed semen analysis and order and lab given discussed HSG, will await insurance coverage reviewed letrozole se risks and benefits including ovarian hyperstimulation , multiple gestation f/u pending ovulation Not available 04/04/2023 10:10:11 Plan of Treatment Reminders Order Date Submit Date Provider Last Modified By Organization Details Last Modified Time Details Appointments None recorded . Lab 17-hydro xyproges terone, QN, serum [address] [facility] (Lab), [address], [place], [address], 3 17:57:46 dhea-sul fate, serum [address] [facility] (Lab), [address] [place], [address], 3 17:57:43 estradio l, serum [address] [facility] (Lab), [address] [place], [address], 3 17:57:38 FSH (follicl e-stimul ating hormone) , serum [address] [facility] (Lab), [address], [place], [address], 3 17:57:43 HbA1c (hemoglo bin A1c), blood [address] [facility] (Lab), [address], [place], [address], 3 17:57:44 lh (luteini zing hormone) , serum [address] [facility] (Lab), [address], [place], [address], 3 17:57:42 progeste gabe, serum [address] [facility] (Lab), [address], [place], [address], 3 17:57:39 prolacti n, serum [address] [facility] (Lab), [address], [place], [address], 3 17:57:41 shbg (sex hormone- binding globulin ), serum [address] [facility] (Lab), [address], [place], [address], 3 17:57:37 TSH, serum or plasma [address] [facility] (Lab), [address], [place], [address], 3 17:57:36 testoste gabe free/ruddy tosteron e total, ratio, serum [address] [facility] (Lab), [address], [place], [address], 3 17:57:45 anti-mul lerian hormone (amh), serum [address] [facility] (Lab), [address], [place], [address], 3 17:57:40 Referral None recorded . Procedures None recorded . Surgeries None recorded . Imaging US, pelvis [address], [address], [address], [place], [address], 3 20:37:17 US, transvag inal [address], [address], [address], [place], [address], 3 20:37:17 US, pelvis, complete 2022 023 [email or web address] [place], [address], [address], [place], [address], 3 15:40:52 Medication Orders Prometri um 200 mg capsule 2022 023 [facility]/Pharmacy #[id number], [address] [place], [address], 3 10:05:05 Patient TargetsNo targets recorded. Patient InstructionsNo instructions recorded. Reason for Referral None Reported. Results Created Date Observation Date Name Description Value Unit Range Abnormal Flag Note LastModifiedBy Organization Detail LastModifiedTime 02/23/20 23 02/22/2023 TSH, REFLE X FREE T4 TSH 2.22 uIU/m L 0.30-5 .33 Not Available [facility] (Lab) [address], [place], [address], 03/03/2023 17:57:36 02/23/20 23 02/22/2023 HUMAN SEX HORMO NE RYNE NG SANGEETHAU KENNETH sex hormone binding globulin 50.2 nmole s/L 18.2-1 35.5 Not Available [facility] (Lab) [address] [place], [address], 03/03/2023 17:57:37 02/23/20 23 02/22/2023 ESTRA DIOL estradiol 42.2 pg/mL This assay was perfo rmed using [employer] ratio n reage nts and test kits. Value s obtai janette with other assay metho ds or kits canno t be used inter [facility] eably . Femal e Estra diol Range s: Folli cular phase 12.4- 233 pg/mL Ovula tion phase 41.0- 398 pg/mL Lutea l phase 22.3- 341 pg/mL Postm enopa usal< 5-138 pg/mL Healt hy Pregn ant Women 1st Trime ster1 54-32 43 pg/mL 2nd Trime ster1 561-2 1280 pg/mL 3rd Trime ster8 525-> 81685 pg/mL Not Available [facility] (Lab) [address], [place], [address], 03/03/2023 17:57:38 02/23/20 23 02/22/2023 PROGE STERO NE progesterone 0.27 NG/mL This assay was perfo rmed using [employer] reage nts and test kits. Value s obtai janette with other assay metho ds or kits canno t be used inter [facility] eably . Femal e Proge stero ne Range s: Folli cular phase 0.06- 0.89 ng/mL Ovula tion phase 0.12- 12.00 ng/mL Lutea l phase 1.83- 23.90 ng/mL Postm enopa usal< 0.05- 0.13 ng/mL Healt hy Pregn ant Women 1st Trime ster1 1.0-4 4.30 2nd Trime ster2 5.40- 83.30 3rd Trime ster5 8.70- 214.0 0 Not Available [facility] (Lab) [address] [place], [address], 03/03/2023 17:57:39 02/23/2002/22/2023 ANTIM ULLER AFSHAN MURPHYO NE (AMH) anti-mulleri an hormone (amh) 7.89 NG/mL Femal e Refer ence Range s 20-24 years : 1.22 - 11.70 ng/mL 25-29 years : 0.89 - 9.85 ng/mL 30-34 years : 0.58 - 8.13 ng/mL 35-39 years : 0.15 - 7.49 ng/mL 40-44 years : 0.03 - 5.47 ng/mL The follo wing resul ts were obtai janette with the [employer] assay . Resul ts from assay s of other manuf actur es canno t be used inter [facility]. Not Available [facility] (Lab) [address] [place], [address], 03/03/2023 17:57:40 02/23/20 23 02/22/2023 PROLA CTIN prolactin, total 8.17 NG/mL 4.79-2 3.30 This assay was perfo rmed using [employer] n reage nts and test kits. Value s obtai janette with other assay metho ds or kits canno t be used inter [facility] . Not Available [facility] (Lab) [address] [place], [address], 03/03/2023 17:57:41 02/23/2002/22/2023 LH (LUTE NIZIN G HORMO NE) LH 4.4 mIU/m L This assay was perfo rmed using [employer] n reage nts and test kits. Value s obtai janette with other assay metho ds or kits canno t be used inter [facility] . Femal es Mid-F ollic ular: 2.4-1 2.6 mIU/m L Mid-C ycle: 14.0- 95.6 mIU/m L Mid-L uteal : 1.0-1 1.4 mIU/m L Postm enopa use: 7.7-5 8.5 mIU/m L Not Available [facility] (Lab) [address] [place], [address], 03/03/2023 17:57:42 02/23/20 23 02/22/2023 FSH FSH 6.9 mIU/m L This assay was perfo rmed using [employer] n reage nts and test kits. Value s obtai janette with other assay metho ds or kits canno t be used inter [facility] eably . Femal es Folli cular : 3.5-1 2.5 mIU/m L Ovula tion: 4.7-2 1.5 mIU/m L Lutea l: 1.7-7 .7 mIU/m L Postm enopa use: 25.8- 134.8 mIU/m L Not Available [facility] (Lab) [address], [place], [address], 03/03/2023 17:57:43 02/23/20 23 02/22/2023 DHEA SULFA TE DHEA-sulfate 130 ug/dL Femal e Range s Age(y ) Range (ug/d L) 10-15 34-28 0 15-20 65-36 8 20-25 148-4 07 25-35 99-34 0 35-45 61-33 7 45-55 35-25 6 55-65 19-20 5 65-75 9-246 > 75 12-15 4 Not Available [facility] (Lab) [address] [place], [address], 03/03/2023 17:57:43 02/23/20 23 02/22/2023 HEMOG LOBIN A1C hemoglobin A1C 5.3 % 0-5.6 The Ameri can Diabe ruddy Assoc iatio n recom mends that a prima ry goal of thera py maria eul d be a HBA1C of < 7% and that physi cians shoul d reeva luate the treat ment regim en in patie nts with HBA1C value s consi stent ly > 8%. <5.7% Windy l 5.7 - 6.4% Incre ased risk for diabe ruddy >=6.5 % Diagn ostic of diabe ruddy <7.0% Goal of thera py >8.0% Actchristiano gaytan Not Available [facility] (Lab) [address], [place], [address], 03/03/2023 17:57:44 02/23/2002/22/2023 TESTO STERO NE, FREE( DIALY SIS) AND TOTAL (LC/M S/MS) testosterone , total 39 NG/dL 2-45 For addit ional dano leung e refer to http: //[facility] andreea tang.alex stdia gnost ics.c om/fa q/Tot alTzeb Adair [facility] (This link is being provi ded for infor matchristiano nal/ educa yazan l purpo ses only. ) This test was devel oped and its aleyda tical perfo rmanc e constantine cteri stics have been deter mined by [employer]. It has not been clear ed or appro aydin by the FDA. This assay has been valid ated pursu ant to the CLIA regul ation s and is used for clini emelia purpo ses. Not Available [facility] (Lab) [address], [place], [address], 03/03/2023 17:57:45 02/23/2002/22/2023 TESTO STERO NE, FREE( DIALY SIS) AND TOTAL (LC/M S/MS) testosterone , free 5.3 pg/mL 0.1-6. 4 This test was devel oped and its aleyda tical perfo rmanc e constantine cteri stics have been deter mined by [employer]. It has not been clear ed or appro aydin by the FDA. This assay has been valid ated pursu ant to the CLIA regul ation s and is used for clini emelia purpo ses. Perfo rming Organ izati on Infor mckenna tang: Site ID: [id number] Name: [employer]-Ashok mary anne Mccoy cia Addre ss: [id number] [place] [address] Direc tor: Hasmukh urena M.D. Not Available [facility] (Lab) [address], [place], [address], 03/03/2023 17:57:45 02/23/20 23 02/22/2023 17-OH PROGE STERO NE 17-hydroxypr ogesterone, lc/MS/MS 52 NG/dL Adult Femal e Refer ence Range s for 17-Hy droxy proge stero ne: Pre-M enopa usal Mid Folli cular : 23-10 2 ng/dL Pre-M enopa usal Surge : 67-34 9 ng/dL Pre-M enopa usal Mid Lutea l: 139-4 31 ng/dL Postm enopa usal Phase : < or = 45 ng/dL Pregn kelsey: First Trime ster: 78-45 7 ng/dL Secon d Trime ster: 90-35 7 ng/dL Third Trime ster: 144-5 78 ng/dL This test was devel oped and its aleyda tical perfo rmanc e constantine cteri stics have been deter mined by [facility] Gil Rangeli corbine Bradly [place] . It has not been clear ed or appro aydin by FDA. This assay has been valid ated pursu ant to the CLIA regul ation s and is used for clini emelia purpo ses. Perfo rming Organ izati on Infor matchristiano n: Site ID: [id number] Name: [facility]/Ashok [facility] [place] , Addre ss: [id number] [place] [address] Direc tor: Radha brooks MD,Ph D,JULIA Not Available [facility] (Lab) [address], [place], [address], 03/03/2023 17:57:46 04/02/20 23 04/02/2023 US, tati s No observ ation record ed. [facility] [address], [place], [address], 04/02/2023 12:37:55 04/02/20 23 04/02/2023 US, trans vagin al No observ ation record ed. [facility] [address], [place], [address], 04/02/2023 12:38:07 04/02/20 23 04/02/2023 US, pelvi s No observ ation record ed. [facility] [address], [place], [address], 04/04/2023 12:01:39 Result Notes None recorded. Procedures Surgical History Date Name Laterality Status Provider Name and Address Organization Details Recorded Time Date of Last Pap Smear completed Carol Hernandez [facility] 02/22/2023 10:25:10 Imaging Results Imaging Date Name Status LastModified by Organization Details LastModified Time 04/02/2023 US, pelvis completed [facility] [address], [place], [address], 04/02/2023 12:37:55 04/02/2023 [facility] [address], [place], [address], 04/02/2023 12:38:07 04/02/2023 US, pelvis completed jori Phippse [address], [place], [address], 04/04/2023 12:01:39 Procedure Notes None recorded. Medical Equipment None Reported. Allergies Allergen ID Allergen Name Allergen Category Reaction Reaction Severity Criticality Documentation Date Start Date Code Code System Note Provider Name and Address Organization Details Recorded Time 72362 amoxicill in medicatio n hives moderate Not available 02/22/20231998 723 RxNorm Carol vo [facility] 3 10:25:04 Medications Name Sig Start Date Stop Date Status Note LastModified by Organization Details LastModified Time medroxyproge sterone 10 mg tablet 10 MG ORALLY DAILY 02/22 completed Not Available Not Available Not Available progesterone micronized 200 mg capsule TAKE 1 CAPSULE BY MOUTH EVERY DAY FOR 12 DAYS active Not Available Not Available No t Available nitrofuranto in monohydrate/ macrocrystal s 100 mg capsule TAKE 1 CAPSULE BY MOUTH TWICE A DAY FOR 7 DAYS active Not Available Not Available No t Available Vitals Date Recorded Body height Body mass index (BMI) Body weight Systolic blood pressure Diastolic blood pressure Provider Name and Address Organization Details Last Updated DateTime 02/22/2023 149.86 cm 43.3 kg/m2 99656.49 g 133 mm[Hg] 80 mm[Hg] Carol Hernandez [facility] 3 10:25:00 Date Recorded Body height Body mass index (BMI) Body weight Systolic blood pressure Diastolic blood pressure Provider Name and Address Organization Details Last Updated DateTime 04/04/2023 149.86 cm 43 kg/m2 11370.17 g 121 mm[Hg] 82 mm[Hg] Priscila Chaney [facility] 3 09:46:55 Social History Question Answer Notes LastModified by Organizat ion Details LastModified Time Tobacco Smoking Status Current Every Day Smoker Yesenia Fried [facility] 04/04/2023 09:33:30 Do You Have An Advance Directive? No Information n ot available 02/22/2023 What Is Your Level Of Alcohol Consumption? None Information not available 02/22/2023 How Many Years Have You Consumed Alcohol? 0 Information not available 02/22/2023 Are You Blind Or Do You Have Difficulty Seeing? No Information n ot available 02/22/2023 What Is Your Level Of Caffeine Consumption? Heavy Information not available 02/22/2023 How Much Tobacco Do You Chew? None Information not available 02/22/2023 In The 14 Days Before Symptom Onset, Have You Had Close Contact With A Laboratory-confirm ed COVID-19 While That Case Was Ill? No Information n ot available 02/22/2023 In The 14 Days Before Symptom Onset, Have You Had Close Contact With A Person Who Is Under Investigation For COVID-19 While That Person Was Ill? No Information not available 02/22/2023 Have You Been To An Area Known To Be High Risk For COVID-19? No Information not available 02/22/2023 Are You Deaf Or Do You Have Serious Difficulty Hearing? No Information not available 02/22/2023 What Type Of Diet Are You Following? REGULAR Information n ot available 02/22/2023 What Is The Highest Grade Or Level Of School You Have Completed Or The Highest Degree You Have Received? 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 No Information not available 02/22/2023 Do You Use Protection During Sex? No Information not available 02/22/2023 Do You Use Your Seat Belt Or Car Seat Routinely? Yes Information not available 02/22/2023 Do You Have Smoke And Carbon Monoxide Detectors In Your Home? Yes Information not available 02/22/2023 At What Age Did You Start Smoking Tobacco? 21 Information not available 02/22/2023 How Much Tobacco Do You Smoke? 0.25 PPD Information not available 02/22/2023 Do You Feel Stressed (tense, Restless, Nervous, Or Anxious, Or Unable To Sleep At Night)? [id number] Information not available 02/22/2023 Do You Use Any Illicit Or Recreational Drugs? No Information not available 02/22/2023 Do You Use Sunscreen Routinely? No Information not available 02/22/2023 How Many Years Have You Smoked Tobacco? 1 Information not available 02/22/2023 Have You Used IV Drugs? No Information not available 02/22/2023 Sex: Unknown Functional Status Question Answer Note LastModified by Organizat ion Details LastModified Time Do you have difficulty walking or climbing stairs? No [email or web address] Information not available 04/04/2023 Are you able to walk? YESWOREST Information not available 02/22/2023 Are you able to care for yourself? Yes [email or web address] Information not available 04/04/2023 Do you have difficulty dressing or bathing? No [email or web address] Information not available 04/04/2023 What is your exercise level? Moderate Information not available 02/22/2023 Mental Status None recorded. Family History Relationship Description Onset Age of this Age Resolved Age Notes LastModified by Organization Details LastModified Time Father Depressive disorder 48 48 [email or web address] Not available 04/2023 10:25:07 Medical History Condition Response Allergies (Food, seasonal, environmental ) N Other N Breast Cancer N Drug/Latex Allergies/Reactions N Blood Transfusion N Dermatologic Disorders N Lung Disease N Defects or Inherited Disease N Breast Problem N Gestational Diabetes N Hematologic disorders N Anesthesia Complications N History of STI N Deep Vein Thrombosis N Polycystic ovary syndrome N Anxiety Disorder N Autoimmune disease N Arthritis N Infertility N Polyps N Acid Reflux (GERD) N History of abnormal pap N Cancer N Stroke N Varicosities N Neurologic/Epilepsy N Endometriosis N High Cholesterol N Headaches N Fibromyalgia N Kidney Disease N Heart Problems N Kidney or Bladder Problems N Thyroid Problems N GI Problems N Eating Disorder N Anemia N Art (IVF or FET) N Psychiatric Illness N Ovarian Cancer N Diabetes N Pulmonary (TB, Asthma) N Hepatitis/Liver Disease N No Past Medical History N Eczema N Urinary Tract Infection N Abuse/Domestic Violence N Asthma N Trauma/Violence N Depression/ depression N Heart Disease N Pre-Eclampsia N Hypertension N Osteoporosis N Thrombophilias N Gynecological History Statement/Question Response Abnormal Pap N Flow Moderate Date of Last Mammogram Date of LMP 04/04/2023 Was last menstrual period normal N STIs/STDs N HPV Vaccine Y Duration of Flow (days) 7 Current Control Method Seeking Pre gnancy Are cycles usually normal Y Sexually Active? Y Seeking Menses Monthly Y Date of DEXA bone scan Age of first menstrual cycle 10 Date of Last Pap Smear 05/31/2021 Sexual Problems? N LMP Definite N Obstetrics History GPAL:G 0 P 0 0 0 0 Type Value Living 0 Total 0 Past Encounters Encounter ID Performer Location Encounter Start Date Encounter Closed Date Diagnosis/Indication Diagnosis SNOMED-CT Code Diagnosis ICD10 Code Diagnosis Note [id number] FRANCY Barker [place] [address] [address] 02/22/2023 10:01:13 02/22/2023 11:27:03 Gynecologic examination 46548015 Z01.419 Take Calcium with Vitamin D 1200mg daily if not receiving in daily diet. It is strongly advised to have an annual flu shot and up can obtain at most pharmacies . If you have not had a TDap shot in the last 10 years you should obtain one as well. Discussed with patient & provided with informatio n regarding Gardisil vaccine to prevent the 4 strains for HPV that cause cervical cancer if under age 26. Encourage safe sexual practices, to use condoms and limit partners if not already in a monogamous relationsh ip. Do monthly self breast exams. Have mammogram yearly or every other year depending on family history. BRCA testing is now available for patients with strong genetic history of female cancer. If interested contact the office. Engage in daily exercise of low impact aerobic exercise 45-60 minutes 4-5 times weekly. Avoid tobacco and illicit drugs as well as using moderation with alcohol intake less than 1-2 8 oz beverages daily. This lifestyle behavior pattern will lead to less health conditions and longer life span. If BMI greater than 25 weight watchers or dietary consult advised. Patient received above instructio ns, and questions have been answered. If you have any questions please call or respond to this email. Patient was made aware of the patient portal and may obtain a paper copy of today's plan if desired.G0 WWEStopped OCP 11/2021, TTC since. Practicing timed IC since 06/2022. She is having monthly, normal periods. Partner took an at home semen analysis that was abnormal. Taking a daily PNV. She is a tobacco smoker, recommende d cessation prior to . We reviewed the risk of tobacco use in . Her partner is a tobacco and marijuana smoker, discussed impact this has on male fertility. We discussed can take a couple 12 months of timed IC to conceive.S he desires labs, pelvic u/s, and fertility consult with SP.No hx of abnormal papslast pap 2020pap done todaySTI testing declinedRe commended to est care with a PCP Time spent in visit is a total of 40 mins with at least 50% of visit consisting of counseling and review of plan of care. Reproducti ve care management [id number] Z31.9 [id number] Yanet Mcdonnell [place] [address] [address] 04/02/2023 09:38:18 04/02/2023 10:34:11 Irregular periods 55399374 N92.6 N97.9 [id number] [facility] [address] [address] 04/04/2023 09:33:23 04/04/2023 10:12:34 Irregular periods [id number] N92.6 Health Concerns Section Related Observation LastModified by Organization Detai ls LastModified Time None Recorded Concern Status LastModified by Organization Details LastModified Time None Recorded Advance Directives Directive N: Payers Encounter Date Sequence Insurance Name Policy Number Policy [place] Covered Member ID [place] Member ID Guarantor Name 02/22/2023 1 [place] [id number] Bean Mi [id number] [address] 04/02/2023 1 [place] [id number] Bean Mi [id number] [address] Mi 04/04/2023 1 [place] [id number] Bean Mi [id number] [address] Notes Date Note Type Note Provider Name and Address Organization Details Recorded Time 02/22/2023 text/html Annual GYNReport ed bypatient.Menstrual cycle:Normal menses Urinary symptoms:No hematuria; No incontinence Vulva:No genital lesion Vagina:Normal vaginal discharge Breast:No breast pain; No breast lump; No nipple discharge Current Contraception: control not practiced; TTC x 1 year, wants to discuss fertility today Sexual complaints:No sexual complaints; No pain during intercourse; Normal libido Menopausal Symptoms:No menopausal symptoms; Normal vaginal lubrication Psychological symptoms:No depression; No anxiety; No PMDD Preventive measures:Encourage self breast examination; Encourage regular exercise; Encourage no tobacco use; Encourage regular mammograms starting age 40 FRANCY Barker [address], [place], [address], [place] [facility] 02/22/2023 11:15:10 04/04/2023 text/html trying to conceiverestart pnvstopped pill last year, actively started trying jun/julycles regular until last 2 months and were both about 2 weeks latehas not check ovulation yetpartner: semen analysis at home low count, marijuana smokerpt quit tobacco about 1 mo agoAMH 4, US showed multiple follicles, pcos appearanceall other labs wnl Sonia Swanson CNM [address], [place], [address], [facility] 04/04/2023 10:10:17 OBGyn Episode No OBEpisode recorded.
--- OUTSIDE RECORDS SUMMARY | 2025-01-10 07:33 | XMS_ITS | Clinical Summary ---
Author Organization [facility] Address [address] [place] [address] Care Team Providers Care Meat Soaker Name Role Phone None, Provider MD Primary Care Provider Unavaila ble Allergies Active Allergy Reactions Criticality Noted Date Comments Amoxicillin Unknown 09/03/2023 Medications No known medications Social History Tobacco Use Types Packs/Day Years Used Date Smoking Tobacco: Former Cigarettes Smokeless Tobacco: Never Tobacco Cessation:Counseling Given: Not Answered Alcohol Use Standard Drinks/Week Comments Not Currently 0 (1 standard drink = 0.6 oz pur e alcohol) Comments Unknown Sex and Gender Information Value Date Recorded Sex Assigned at Not on file Legal Sex Female 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 Gender Identity Not on file Sexual Orientation Not on file Last Filed Vital Signs Vital Sign Reading Time Taken Comments Blood Pressure 127/72 09/03/2023 4:12 PM SENIOR ORACLE DATABASE ADMINISTRATOR Pulse 99 09/03/2023 4:12 PM SENIOR ORACLE DATABASE ADMINISTRATOR Temperature 36.6 C (97.8 F) 09/03/2023 1:20 PM SENIOR ORACLE DATABASE ADMINISTRATOR Respiratory Rate 16 09/03/2023 4:12 PM SENIOR ORACLE DATABASE ADMINISTRATOR Oxygen Saturation 100% 09/03/2023 4:12 PM SENIOR ORACLE DATABASE ADMINISTRATOR Inhaled Oxygen Concentration - - Weight 96.2 kg (212 lb) 09/03/2023 1:20 PM SENIOR ORACLE DATABASE ADMINISTRATOR Height 149.9 cm (4' 11 ) 09/03/2023 1:20 PM SENIOR ORACLE DATABASE ADMINISTRATOR Body Mass Index 42.82 09/03/2023 1:20 PM SENIOR ORACLE DATABASE ADMINISTRATOR Plan of Treatment Health Maintenance Due Date Last Done Comments Cervical Cancer Screening Pa p Smear (Age 21 to 29) Every 3 Years 1999 Cervical Cancer Screening 1999 Annual Physical 2002 HPV Vaccines (1 - 3-dose series) 2014 Hepatitis C 2017 DTaP, Tdap and Td Vaccines ( 4 - Tdap) 2018 04/09/2000, 1999, 1999 COVID-19 Vaccine (3 - 2023-2 5 season) 2024 10/19/2021, 09/28/2021 Hepatitis B Vaccines Completed 04/09/2000, 1999, 1999 Meningococcal B Vaccine Aged Out No l onger eligible based on patient's age to complete this topic Meningococcal Vaccine Aged Out No darin ken eligible based on patient's age to complete this topic Pneumococcal Vaccine: Pediatrics (0 to 5 Years) and At-Risk Patients (6 to 49 Years) Aged Out No longer eligible b ased on patient's age to complete this topic RSV Immunizations Under 20 Months Aged Out No longer eligible b ased on patient's age to complete this topic Insurance [facility] Care Teams Meat Soaker Relationship Specialty Start Date End Date None, Provider, MD PCP - General UNKNOWN PHYSICIAN SPECIALTY 09/03/23
--- OUTSIDE RECORDS SUMMARY | 2025-01-10 07:33 | XMS_ITS | Clinical Summary ---
Author Organization [facility] Address [address] [place] [address] Care Team Providers Care Boss Miner Name Role Phone Unavailable Primary Care Provider Unavailabl e Source Comments [facility],non-owned Affiliates and Associated Physician Practices is amultiple site organization consisting of ambulatory clinics and hospital sitesin [place], [place], [place] and [place]. This disclosure is being madepursuant to the Care Everywhere program and may not contain all information available regarding this patient. Last updated 18.[employer] [facility] Allergies Active Allergy Reactions Criticality Noted Date Comments Amoxicillin Urticaria Medium 03/05/2024 Medications * Be aware that medications may not be up to date on this document. Alwaysverify current medications with the patient. 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 Gender Identity Not on file Sexual Orientation Not on file Last Filed Vital Signs Vital Sign Reading Time Taken Comments Blood Pressure 122/68 03/26/2024 1:10 PM CDT Pulse 64 03/26/2024 1:10 PM CDT Temperature - - Respiratory Rate - - Oxygen Saturation - - Inhaled Oxygen Concentration - - Weight 107.4 kg (236 lb 12.8 oz) 03/26/2024 1:01 PM CDT Height 152.4 cm (5') 03/26/2024 1:01 PM CDT Body Mass Index 46.25 03/26/2024 1:01 PM CDT Plan of Treatment Health Maintenance Due Date Last Done Comments PAP SMEAR 1999 HIV SCREENING 2014 HPV VACCINE (1 - 3-dose series) 2014 CHLAMYDIA/GONORRHEA SCREENING 2015 HEPATITIS C SCREENING 06/01/2017 DTAP/TDAP/TD VACCINES (1 - Tdap) 2018 HEPATITIS B VACCINE (1 of 3 - 19+ 3-dose series) 2018 COVID-19 VACCINE (3 - 2023-2 5 season) 2024 10/19/2021, 09/28/2021 DEPRESSION SCREENING 09/17/2024 INFLUENZA VACCINE (Season Ended) 2025 ZOSTER VACCINE (1 of 2) 2049 HIB VACCINE Aged Out No longer eligi ble based on patient's age to complete this topic MENINGOCOCCAL (Group B) VACCINE SHARED DECISION-MAKING Aged Out No longer eligible based on patient's age to complete this topic MENINGOCOCCAL GROUPS A/C/Y/W VACCINE Aged Out No longer eligible b ased on patient's age to complete this topic PNEUMOCOCCAL VACCINE Aged Out No long er eligible based on patient's age to complete this topic Insurance [employer]NA [place]ID [place] * Guarantor: [place] Account Type Relation to Patient Date of Phone Billing Address Personal/Family [address] [place] [address] * Guarantor: [place]MEN [place] Account Type Relation to Patient Date of Phone Billing Address Personal/Family [address] [place] [address] * Guarantor: [place]MEN [place] Account Type Relation to Patient Date of Phone Billing Address Personal/Family [address] [place] [address]
[2025-01-10 07:40] VITALS: BP 141/88; PULSE 100; RESP 16; TEMP 36.4; O2SAT 98
--- NOTE | 2025-01-10 07:55 | ED_ITS ---
HPI - General Adult General Chief complaint: Abdominal Pain Stated complaint: ABD PAIN X1D Time Seen by Provider: 01/10/25 07:35 History of Present Illness HPI narrative: 24-year-old female presents to the emergency department for evaluation for a periumbilical abdominal pain has been going on for approximately 1 day. Patient states he does have prior history of PC was but denies any history of ruptured ovarian cyst. Patient states the pain is periumbilical and denies any radiation of the pain. Patient denies any constipation or diarrhea. Patient denies any radiation of the pain. Related Data Allergies Allergy/AdvReac Type Severity Reaction Status Date / Time amoxicillin (From Amoxil) Allergy Mild Hives Verified 01/10/25 07:30 Review of Systems 2 Review of Systems: All systems reviewed & are unremarkable except as noted in HPI and below PMFSH Family History Family History Grandparent Heart disease Breast cancer Acute leukemia Social History Social History Smoking packs per day: 0.25 Smoking cigarettes per day: 5.0 Years smoked: 2 Smoking pack-years: 0.50 Smoking status: Former smoker Alcohol intake: never Substance use: never Substance use type: does not use Do You Feel Safe in your Home?: Yes Lack of Transportation: No Lack of Food: Never True Current Housing: I Have Housing Concerned About Future Housing: No Difficulty Paying Gas/Electric Bills: No Difficulty Paying for Meds: No Currently Unemployed: No Education: High School Diploma/GED Difficulty w/ Childcare or Family Care: No Living arrangements: with family Occupation/Education: occupation Gender identity (if verbalized by the patient): Female Sexual Orientation (if Verbalized by the Patient): Straight or Heterosexual Spiritual care concerns: No Exam 2 Narrative: APPEARANCE: Well appearing, no pain, no distress, well-nourished. HEAD: normocephalic, atraumatic. EYES: PERRLA/EOMI, conjunctivae clear. NOSE: Normal no drainage EARS:TMS clear with good light reflex. THROAT: Pharynx clear, no exudate. NECK: Supple. No adenopathy, no masses. RESPIRATORY: Airway patent, respirations nonlabored. Clear to auscultation bilaterally, no rales, rhonchi, wheezing. CARDIOVASCULAR: Regular rate and rhythm without murmurs rubs or gallops. ABDOMINAL: Megan umbilical abdominal tenderness MUSCULOSKELETAL: Moves all extremities. Strength/ROM intact, No edema, No calf tenderness. NEURO: Alert. Cranial nerves II through XII intact. Good gait. Good coordination SKIN: Warm, dry. Normal Color Course Vital Signs Vital signs: Vital Signs Temperature 97.6 F 01/10/25 07:40 Pulse Rate 100 01/10/25 07:40 Respiratory Rate 16 01/10/25 07:40 Blood Pressure 141/88 H 01/10/25 07:40 Pulse Oximetry 98 01/10/25 07:40 Oxygen Delivery Room Air 01/10/25 07:40 Temperature 97.6 F 01/10/25 09:36 Pulse Rate 84 01/10/25 09:36 Respiratory Rate 14 01/10/25 09:36 Blood Pressure 128/77 01/10/25 09:36 Pulse Oximetry 98 01/10/25 09:36 Oxygen Delivery Room Air 01/10/25 07:40 Medical Decision Making MDM Narrative Medical decision making narrative: 24-year-old female presents to the emergency department for evaluation for periumbilical abdominal pain. Patient declined any medications for pain control. Patient family updated the results of the workup. Patient is currently a afebrile with no leukocytosis and hemoglobin of 14, UA was suggestive of infection with positive leukocyte esterase positive white blood cells and high bacteria patient's test was negative. Patient family updated on the Xarelto for the workup and all questions concerns were addressed. Patient was well-appearing at time of discharge. Differential Diagnosis Differential Diagnosis: Periumbilical abdominal pain, colitis, diverticulitis, UTI, gastritis Vital Signs Vital Signs: Vital Signs Temperature 97.6 F 01/10/25 07:40 Pulse Rate 100 01/10/25 07:40 Respiratory Rate 16 01/10/25 07:40 Blood Pressure 141/88 H 01/10/25 07:40 Pulse Oximetry 98 01/10/25 07:40 Oxygen Delivery Room Air 01/10/25 07:40 Temperature 97.6 F 01/10/25 09:36 Pulse Rate 84 01/10/25 09:36 Respiratory Rate 14 01/10/25 09:36 Blood Pressure 128/77 01/10/25 09:36 Pulse Oximetry 98 01/10/25 09:36 Oxygen Delivery Room Air 01/10/25 07:40 Lab Data Lab results reviewed: Yes I reviewed the patient's lab results. 01/10/25 07:48 01/10/25 07:48 Labs: Lab Results 01/10/25 01/10/25 Range/Units 07:48 07:56 WBC 9.9 (4.5-10.0) K/mm3 RBC 4.74 (4.2-5.4) M/mm3 Hgb 14.0 D (12.0-15.0) g/dL Hct 42.4 (37.0-47.0) % MCV 89.5 (80-100) fl MCH 29.5 (26-34) pg MCHC 33.0 (32-36) g/dl RDW 12.7 (11.5-14.5) % Plt Count 385 H (150-375) k/mm3 MPV 8.9 (7.4-10.4) fl Immature Gran % (Auto) 0.3 (0-0.5) % Neut % (Auto) 71.1 (45.5-73.1) % Lymph % (Auto) 20.0 (18.3-44.2) % Antelope % (Auto) 7.0 (2.6-8.5) % Eos % (Auto) 1.2 (0-4.4) % Baso % (Auto) 0.4 (0.2-1.2) % Lymph # (Auto) 1.97 (0.9-3.2) K/mm3 Antelope # (Auto) 0.7 H (0.1-0.6) K/mm3 Eos # (Auto) 0.1 (0-0.3) K/mm3 Baso # (Auto) 0.0 (0.0-0.1) K/mm3 Abs Immat Gran (auto) 0.03 (0.00-0.031) K/mm3 Absolute Neuts (auto) 7.0 H (1.3-6.7) K/mm3 Absolute Nucleated RBC 0.000 (0.0-0.012) K/mm3 Nucleated RBC % 0.0 (0.0-0.2) % Sodium 140 (137-145) mmol/L Potassium 4.1 (3.4-5.0) mmol/L Chloride 104 (98-107) mmol/L Carbon Dioxide 26 (22-30) mmol/L Anion Gap 10 (4-12) mmol/L BUN 15 D (7-17) mg/dL Creatinine 0.57 L (0.7-1.0) mg/dL Estim Creat Clear Calc 134 ml/min Estimated GFR > 60 (59 - ) Glucose 105 (65-110) mg/dL Calcium 9.3 (8.4-10.2) mg/dL Total Bilirubin 0.7 (0.2-1.3) mg/dL AST 18 (14-36) U/L ALT 21 (6-35) U/L Alkaline Phosphatase 100 (38-126) U/L Total Protein 8.0 (6.3-8.2) g/dL Albumin 4.5 (3.5-5.1) g/dL Lipase 45 (23-300) U/L Urine Color Yellow (Yellow) Urine Appearance Clear (Clear) Urine pH 6.0 (5.0-9.0) Ur Specific [place] 1.023 (1.001-1.035) Urine Protein Negative (Negative) mg/dL Urine Glucose (UA) Negative (Negative) mg/dL Urine Ketones Negative (Negative) mg/dL Ur Blood (Man) Negative (Negative) Urine Nitrate Negative (Negative) Urine Bilirubin Negative (Negative) Urine Urobilinogen 0.2 (<2.0) mg/dL Leukocyte Esterase Rfl 2+ H (Negative) PHI/UL Urine RBC 0-2 (0-2) /hpf Urine WBC 11-20 H (0-3) /hpf Ur Squamous Epith Cells Few (Few) /hpf Urine Bacteria 1+ H /hpf Urine Casts 0-2 POC Urine HCG, Qual Negative (Negative) Discharge Plan Discharge Clinical Impression: Abdominal pain, UTI (urinary tract infection) Patient Disposition: Home Condition: Stable Instructions: Antibiotic Form, Urinary Tract Infection in Women (DC), Abdominal Pain (ED) Additional Instructions: Drink plenty of fluids, antibiotic as directed until completed for the urinary tract infection. Tylenol and ibuprofen for pain control. Have close follow-up with your primary care physician. Patient Language: Pashto Prescriptions: New cephalexin 500 mg capsule 500 mg PO Q8H 7 Days Qty: 21 0RF No Action norethindrone-e.estradiol-iron [Junel FE 1.5/30 (28)] 1.5 mg-30 mcg (21)/75 mg (7) tablet 1 tablet PO DAILY Qty: 84 3RF hydroxyzine HCl 25 mg tablet 25 mg PO TID PRN (Reason: anxiety) Qty: 270 0RF sertraline 50 mg tablet See Rx Instructions .ROUTE .COMPLEX Qty: 90 0RF Dose Instruction: TAKE 1 TABLET BY MOUTH EVERY DAY Rx Instructions: TAKE 1 TABLET BY MOUTH EVERY DAY Follow-up/Referrals: UNKNOWN,DOCTOR [Non-Staff] -
[2025-01-10 07:58] LABS: BEDSIDEPREGUCG Negative (Negative)
[2025-01-10 07:59] LABS: Basophils Percent Auto 0.4 % (0.2-1.2); Eosinophils Absolute Auto 0.1 K/mm3 (0-0.3); Eosinophils Percent Auto 1.2 % (0-4.4); Hematocrit 42.4 % (37.0-47.0); Immature Granulocyte Absolute 0.03 K/mm3 (0.00-0.031); Immature Granulocyte Percent A 0.3 % (0-0.5); Lymphocytes Absolute Auto 1.97 K/mm3 (0.9-3.2); Mean Corpuscular Hemoglobin 29.5 pg (26-34); Mean Corpuscular Volume 89.5 fl (80-100); Mean Platelet Volume 8.9 fl (7.4-10.4); Monocytes Absolute Auto 0.7 K/mm3 (0.1-0.6); Neutrophils Percent Auto 71.1 % (45.5-73.1); Platelet Count Result 385 k/mm3 (150-375); Red Blood Count 4.74 M/mm3 (4.2-5.4); Red Cell Distribution Width 12.7 % (11.5-14.5); White Blood Count 9.9 K/mm3 (4.5-10.0)
--- OUTSIDE RECORDS SUMMARY | 2025-01-10 08:00 | XMS_ITS | Clinical Summary ---
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 Gender Identity Female 11/16/2021 9:26 AM COATING AND EMBOSSING UNIT OPERATOR Sexual Orientation Not on file Obstetrics History Last Filed Vital Signs Vital Sign Reading Time Taken Comments Blood Pressure 126/81 11/16/2021 3:05 PM COATING AND EMBOSSING UNIT OPERATOR Pulse 80 11/16/2021 3:05 PM COATING AND EMBOSSING UNIT OPERATOR Temperature 36.1 C (97 F) 11/16/2021 8:10 AM COATING AND EMBOSSING UNIT OPERATOR Respiratory Rate 16 11/16/2021 10:47 AM COATING AND EMBOSSING UNIT OPERATOR Oxygen Saturation 98% 11/16/2021 3:05 PM COATING AND EMBOSSING UNIT OPERATOR Inhaled Oxygen Concentration - - Weight 91.6 kg (202 lb) 11/16/2021 8:10 AM COATING AND EMBOSSING UNIT OPERATOR Height 152.4 cm (5') 11/16/2021 8:10 AM COATING AND EMBOSSING UNIT OPERATOR Body Mass Index 39.45 11/16/2021 8:10 AM COATING AND EMBOSSING UNIT OPERATOR Plan of Treatment Not on file Insurance [facility] OOS Care Teams Meter Reading Clerk Relationship Specialty Start Date End Date No, Physician PCP - General 11/16/21
--- OUTSIDE RECORDS SUMMARY | 2025-01-10 08:00 | XMS_ITS | Referral Summary ---
Author Organization [facility] Address [address] [place] [id number] Care Team Providers Care Fire Safety Director Name Role Phone No, Physician Primary Care Provider [phone] Allergies Active Allergy Reactions Criticality Noted Date Comments Amoxicillin Rash Medium 11/16/2021 Social History Tobacco Use Types Packs/Day Years Used Date Smoking Tobacco: Never Assessed Comments No Sex and Gender Information Value Date Recorded Sex Assigned at Not on file Legal Sex Female 3:40 AM HYDROMETER CALIBRATOR Gender Identity Female 11/16/2021 9:26 AM HYDROMETER CALIBRATOR Sexual Orientation Not on file Last Filed Vital Signs Vital Sign Reading Time Taken Comments Blood Pressure 126/81 11/16/2021 3:05 PM HYDROMETER CALIBRATOR Pulse 80 11/16/2021 3:05 PM HYDROMETER CALIBRATOR Temperature 36.1 C (97 F) 11/16/2021 8:10 AM HYDROMETER CALIBRATOR Respiratory Rate 16 11/16/2021 10:47 AM HYDROMETER CALIBRATOR Oxygen Saturation 98% 11/16/2021 3:05 PM HYDROMETER CALIBRATOR Inhaled Oxygen Concentration - - Weight 91.6 kg (202 lb) 11/16/2021 8:10 AM HYDROMETER CALIBRATOR Height 152.4 cm (5') 11/16/2021 8:10 AM HYDROMETER CALIBRATOR Body Mass Index 39.45 11/16/2021 8:10 AM HYDROMETER CALIBRATOR Plan of Treatment Not on file Insurance [facility] OOS Care Teams Fire Safety Director Relationship Specialty Start Date End Date No, Physician PCP - General 11/16/21
--- OUTSIDE RECORDS SUMMARY | 2025-01-10 08:01 | XMS_ITS | Clinical Summary ---
Author Organization [facility] Address [address] [place] [address] Care Team Providers Care Occasional Babysitter Name Role Phone Unavailable Primary Care Provider Unavailabl e Source Comments [facility],non-owned Affiliates and Associated Physician Practices is amultiple site organization consisting of ambulatory clinics and hospital sitesin [place], [place], [place] and [place]. This disclosure is being madepursuant to the Care Everywhere program and may not contain all information available regarding this patient. 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
--- OUTSIDE RECORDS SUMMARY | 2025-01-10 08:01 | XMS_ITS | Clinical Summary ---
Author Organization [facility] Address [address] [place] [id number] Care Team Providers Care Filter Cleaner Name Role Phone None, Provider MD Primary [...] on file Legal Sex Female 1:17 PM MATERIAL DISTRIBUTOR Gender Identity Not on file Sexual Orientation Not on file Last Filed Vital Signs Vital Sign Reading Time Taken Comments Blood Pressure 127/72 09/03/2023 4:12 PM MATERIAL DISTRIBUTOR Pulse 99 09/03/2023 4:12 PM MATERIAL DISTRIBUTOR Temperature 36.6 C (97.8 F) 09/03/2023 1:20 PM MATERIAL DISTRIBUTOR Respiratory Rate 16 09/03/2023 4:12 PM MATERIAL DISTRIBUTOR Oxygen Saturation 100% 09/03/2023 4:12 PM MATERIAL DISTRIBUTOR Inhaled Oxygen Concentration - - Weight 96.2 kg (212 lb) 09/03/2023 1:20 PM MATERIAL DISTRIBUTOR Height 149.9 cm (4' 11 ) 09/03/2023 1:20 PM MATERIAL DISTRIBUTOR Body Mass Index 42.82 09/03/2023 1:20 PM MATERIAL DISTRIBUTOR Plan of Treatment Health Maintenance Due Date [...] patient's age to complete this topic Insurance [facility] Care Teams Filter Cleaner Relationship Specialty Start Date End Date None, Provider, MD PCP - General UNKNOWN PHYSICIAN SPECIALTY 09/03/23
[2025-01-10 08:05] LABS: Add Urine Microscopic? YES; Appearance Urine Clear (Clear); Bacteria Urine 1+ /hpf; Bilirubin Urine Negative (Negative); Blood Urine Negative (Negative); Color Urine Yellow (Yellow); Glucose Urine UA Negative (Negative); Ketones Urine Negative (Negative); Leukocyte Esterase Ur 2+ LEU/UL (Negative); Nitrate Urine Negative (Negative); Non Pathogenic Casts 0-2; Protein Urine Negative (Negative); RBC Urine 0-2 /hpf (0-2); Specific Grav Ur 1.023 (1.001-1.035); Squamous Epithelial Cell Urine Few /hpf (Few); Urobilinogen Urine 0.2 mg/dL (<2.0)
[2025-01-10 08:24] LABS: Alanine Aminotransferase 21 U/L (6-35); Albumin Level 4.5 g/dL (3.5-5.1); Alkaline Phosphatase 100 U/L (38-126); Anion Gap 10 mmol/L (4-12); Aspartate Amino Transferase 18 U/L (14-36); Bilirubin,Total 0.7 mg/dL (0.2-1.3); Blood Urea Nitrogen 15 mg/dL (7-17); Calcium 9.3 mg/dL (8.4-10.2); Carbon Dioxide 26 mmol/L (22-30); Chloride 104 mmol/L (98-107); Estimated CRCL calculation 134 ml/min; Estimated Glomerular Filt Rate > 60; Glucose 105 mg/dL (65-110); Lipase 45 U/L (23-300); Potassium 4.1 mmol/L (3.4-5.0); Sodium 140 mmol/L (137-145)
[2025-01-10] MEDS: CEPHALEXIN 500 MG CAPSULE PO (09:34)
[2025-01-10 09:36] VITALS: BP 128/77; PULSE 84; RESP 14; TEMP 36.4; O2SAT 98
== END 2025-01-10 09:37 | disposition home or self-care (01) ==
PROVIDERS: Emergency Provider Emergency Medicine
DX: N39.0 Urinary tract infection, site not specified (principal); R10.33 Periumbilical pain; Z87.891 Personal history of nicotine dependence; Z79.3 Long term (current) use of hormonal contraceptives; Z79.899 Other long term (current) drug therapy
CPT/HCPCS: 36415; 80053; 81001; 81025; 83690; 85025; 87086; 99283; A9270

== ENCOUNTER 2025-06-05 08:52 | Outpatient (CLI) | payer OTHER, SELFPAY ==
--- OUTSIDE RECORDS SUMMARY | 2025-06-05 08:54 | XMS_ITS | Clinical Summary ---
Author Organization [facility] Address [address] [place] [address] Care Team Providers Care Diversified Crops Farmer Name Role Phone None, Provider MD Primary [...] on file Legal Sex Female 1:17 PM TOOL SUPERVISOR Gender Identity Not on file Sexual Orientation Not on file Last Filed Vital Signs Vital Sign Reading Time Taken Comments Blood Pressure 127/72 09/03/2023 4:12 PM TOOL SUPERVISOR Pulse 99 09/03/2023 4:12 PM TOOL SUPERVISOR Temperature 36.6 C (97.8 F) 09/03/2023 1:20 PM TOOL SUPERVISOR Respiratory Rate 16 09/03/2023 4:12 PM TOOL SUPERVISOR Oxygen Saturation 100% 09/03/2023 4:12 PM TOOL SUPERVISOR Inhaled Oxygen Concentration - - Weight 96.2 kg (212 lb) 09/03/2023 1:20 PM TOOL SUPERVISOR Height 149.9 cm (4' 11) 09/03/2023 1:20 PM TOOL SUPERVISOR Body Mass Index 42.82 09/03/2023 1:20 PM TOOL SUPERVISOR Plan of Treatment Health Maintenance Due Date Last Done Comments Cervical Cancer Screening Pa p Smear (Age 21 to 29) Every 3 Years 1999 Cervical Cancer Screening 1999 Annual Physical 2002 HPV Vaccines (1 - 3-dose series) 2014 Hepatitis C 2017 DTaP, Tdap and Td Vaccines ( 4 - Tdap) 2018 04/09/2000, 1999, 1999 COVID-19 Vaccine (3 - 2024-2 6 season) 2025 10/19/2021, 09/28/2021 Hepatitis B Vaccines Completed 04/09/2000, [...] patient's age to complete this topic Insurance [facility] Care Teams Diversified Crops Farmer Relationship Specialty Start Date End Date None, Provider, MD PCP - General UNKNOWN PHYSICIAN SPECIALTY 09/03/23
--- OUTSIDE RECORDS SUMMARY | 2025-06-05 08:54 | XMS_ITS | Clinical Summary ---
Author Organization [facility] Address [address] [place] [id number] Care Team Providers Care Podiatrist Orthopedic Name Role Phone No, Physician Primary Care Provider [phone] Allergies Active Allergy Reactions Criticality Noted Date Comments Amoxicillin Rash Medium 11/16/2021 Social History Tobacco Use Types Packs/Day Years Used Date Smoking Tobacco: Never Assessed Comments No Sex and Gender Information Value Date Recorded Sex Assigned at Not on file Legal Sex Female 3:40 AM POLICEWOMAN Gender Identity Female 11/16/2021 9:26 AM POLICEWOMAN Sexual Orientation Not on file Obstetrics History Last Filed Vital Signs Vital Sign Reading Time Taken Comments Blood Pressure 126/81 11/16/2021 3:05 PM POLICEWOMAN Pulse 80 11/16/2021 3:05 PM POLICEWOMAN Temperature 36.1 C (97 F) 11/16/2021 8:10 AM POLICEWOMAN Respiratory Rate 16 11/16/2021 10:47 AM POLICEWOMAN Oxygen Saturation 98% 11/16/2021 3:05 PM POLICEWOMAN Inhaled Oxygen Concentration - - Weight 91.6 kg (202 lb) 11/16/2021 8:10 AM POLICEWOMAN Height 152.4 cm (5') 11/16/2021 8:10 AM POLICEWOMAN Body Mass Index 39.45 11/16/2021 8:10 AM POLICEWOMAN Plan of Treatment Not on file Insurance [facility] CHOICE OOS Care Teams Podiatrist Orthopedic Relationship Specialty Start Date End Date No, Physician PCP - General 11/16/21
--- OUTSIDE RECORDS SUMMARY | 2025-06-05 08:54 | XMS_ITS | Clinical Summary ---
Author Organization [facility] [employer] Address [address] [place] [address] Care Team Providers Care Psychiatric Secretary Name Role Phone Unavailable Primary Care Provider Unavailabl e Source Comments [facility] [employer],non-owned Affiliates and Associated Physician Practices is amultiple site organization consisting of ambulatory clinics and hospital sitesin [place], [place], [place] and [place]. This disclosure is being madepursuant to the Care Everywhere program and may not contain all information available regarding this patient. 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 TENDER Gender Identity Not on file Sexual Orientation [...] Health Maintenance Due Date Last Done Comments HIV SCREENING 2014 HPV VACCINE (1 - 3-dose series) 2014 CHLAMYDIA/GONORRHEA SCREENING 2015 HEPATITIS C SCREENING 06/01/2017 DTAP/TDAP/TD VACCINES (1 - Tdap) 2018 HEPATITIS B VACCINE (1 of 3 - 19+ 3-dose series) 2018 PAP SMEAR 2020 DEPRESSION SCREENING 09/17/2024 COVID-19 VACCINE (3 - 2024-2 6 season) 2025 10/19/2021, 09/28/2021 INFLUENZA VACCINE (#1) 2025 ZOSTER VACCINE (1 of 2) 2049 [...] Insurance [employer] MEDICAID - [place] * Guarantor: [place] Account Type Relation to Patient Date of Phone Billing Address Personal/Family [address] [place] [address] * Guarantor: MONTY [place] Account Type Relation to Patient Date of Phone Billing Address Personal/Family [address] [place] [address] * Guarantor: [place]ONTY [place] Account Type Relation to Patient Date of Phone Billing Address Personal/Family [address] [place] [address]
[2025-06-05 10:37] LABS: Hematocrit 37.6 % (37.0-47.0); Hemoglobin 12.6 g/dL (12.0-15.0); Mean Corpuscular HGB Conc 33.5 g/dl (32-36); Mean Corpuscular Hemoglobin 30.2 pg (26-34); Mean Corpuscular Volume 90.2 fl (80-100); Platelet Count Result 373 k/mm3 (150-375); Red Blood Count 4.17 M/mm3 (4.2-5.4); White Blood Count 7.8 K/mm3 (4.5-10.0)
[2025-06-05 11:00] LABS: Glucose 1 Hour PP 50gm Dose 134 mg/dL
[2025-06-05 11:16] LABS: Beta HCG Quantitative 640.62 mIU/ML
[2025-06-05 11:27] LABS: Syphilis IgG/IgM Antibody Non-Reactive (Nonreactive)
[2025-06-05 11:31] LABS: Hepatitis B Surface Antigen Negative (Negative)
[2025-06-05 11:40] LABS: HIV 1/2 Ab P24 Ag Result Negative (Negative)
[2025-06-06 07:09] LABS: Cytomegalovirus (CMV) Ab, IgG <0.60 U/mL (0.00-0.59)
[2025-06-08 12:08] LABS: Parvovirus B19, IgG 4.9 index (0.0-0.8); Parvovirus B19, IgM 0.2 index (0.0-0.8); Varicella-Zoster Ab, IgG Reactive (Non Reactive); Varicella-Zoster Ab, IgM <0.91 index (0.00-0.90)
== END 2025-06-05 08:53 | disposition home or self-care (01) ==
LOC: ANHLAB 08:53
PROVIDERS: Visit Provider Student in an Organized Health Care Education/Training Program
DX: N91.2 Amenorrhea, unspecified (principal)
CPT/HCPCS: 36415; 82947; 84702; 85027; 86593; 86644; 86703; 86747; 86762; 86787; 86850; 86900; 86901; 87086; 87340; G0432

== ENCOUNTER 2025-06-13 07:16 | Outpatient (CLI) | payer OTHER, SELFPAY ==
--- OUTSIDE RECORDS SUMMARY | 2025-06-13 07:21 | XMS_ITS | Clinical Summary ---
Author Organization [facility] Address [address] [place] [id number] Care Team Providers Care Soaping Department Supervisor Name Role Phone None, Provider MD Primary [...] on file Legal Sex Female 1:17 PM CUTTING AND SPLICING SUPERVISOR Gender Identity Not on file Sexual Orientation Not on file Last Filed Vital Signs Vital Sign Reading Time Taken Comments Blood Pressure 127/72 09/03/2023 4:12 PM CUTTING AND SPLICING SUPERVISOR Pulse 99 09/03/2023 4:12 PM CUTTING AND SPLICING SUPERVISOR Temperature 36.6 C (97.8 F) 09/03/2023 1:20 PM CUTTING AND SPLICING SUPERVISOR Respiratory Rate 16 09/03/2023 4:12 PM CUTTING AND SPLICING SUPERVISOR Oxygen Saturation 100% 09/03/2023 4:12 PM CUTTING AND SPLICING SUPERVISOR Inhaled Oxygen Concentration - - Weight 96.2 kg (212 lb) 09/03/2023 1:20 PM CUTTING AND SPLICING SUPERVISOR Height 149.9 cm (4' 11) 09/03/2023 1:20 PM CUTTING AND SPLICING SUPERVISOR Body Mass Index 42.82 09/03/2023 1:20 PM CUTTING AND SPLICING SUPERVISOR Plan of Treatment Health Maintenance Due [...] patient's age to complete this topic Insurance [facility] Care Teams Soaping Department Supervisor Relationship Specialty Start Date End Date None, Provider, MD PCP - General UNKNOWN PHYSICIAN SPECIALTY 09/03/23
--- OUTSIDE RECORDS SUMMARY | 2025-06-13 07:21 | XMS_ITS | Clinical Summary ---
Author Organization [facility] Address [address] [place] [address] Care Team Providers Care Radiological Technologist Name Role Phone Unavailable Primary Care Provider Unavailabl e Source Comments [facility],non-owned Affiliates and Associated Physician Practices is amultiple site organization consisting of ambulatory clinics and hospital sitesin [place], [place], [place] and [place]. This disclosure is being madepursuant to the Care Everywhere program and may not contain all information available regarding this patient. Last updated 18.[facility] Allergies Active Allergy Reactions Criticality Noted Date [...] on file Legal Sex Female 5:39 AM [employer] Gender Identity Not on file Sexual Orientation [...] of Phone Billing Address Personal/Family [address] [place] [address] * Guarantor: [employer] Account Type Relation to Patient Date of Phone Billing Address Personal/Family [address] [place] [address] * Guarantor: [employer] Account Type Relation to Patient Date of Phone Billing Address Personal/Family [address] [place] [address]
[2025-06-13 07:53] LABS: Glucose Fasting Gestational 97 mg/dL (>/=95)
[2025-06-13 10:04] LABS: Glucose 1 Hour Gest 113 mg/dL (>/=180)
[2025-06-13 10:36] LABS: Glucose 2 Hour Gest 110 mg/dL (>/= 155)
[2025-06-13 11:43] LABS: Glucose 3 Hour Gest 114 mg/dL (>/=140)
== END 2025-06-13 07:17 | disposition home or self-care (01) ==
LOC: ANHLAB 07:19
PROVIDERS: Visit Provider Student in an Organized Health Care Education/Training Program
DX: O99.810 Abnormal glucose complicating pregnancy (principal); Z3A.00 Weeks of gestation of pregnancy not specified
CPT/HCPCS: 36415; 82951; 82952